=== PATIENT | male | born 1960 | race Caucasian/White ===

== ENCOUNTER 2024-04-12 10:56 | Outpatient (AMB) | payer OTHER, SELFPAY ==
--- NOTE | 2024-04-12 11:12 | MHC.PC.OV ---
Vital Signs 04/12/24 11:15 04/12/24 11:53 Height 5 ft 10 in Weight 260 lb BMI 37.3 BP 164/84 H 160/110 H Blood Pressure Location Lt brachial Rt brachial Position Sitting Sitting Respiration 15 Pulse 69 Pulse Source Pulse Oximeter Temp 98.1 F Temp Source Oral Pulse Oximetry (%) 94 Oxygen Delivery Method Room Air Intake Visit Reasons: EstablishCareNP Intake Note: new patient to establish care Allergies cat dander [CATS] Adverse Reaction (Mild, Verified 04/12/24 11:46) RUNNY NOSE Shellfish Allergy (Mild, Uncoded 04/12/24 11:46) HIVES, SWELLING GRASS Adverse Reaction (Mild, Uncoded 04/12/24 11:46) RUNNY NOSE Medication List - Last Reconciled 04/12/24 by Asif Franco CNP No Known Home Meds Tobacco use date assessed: 04/12/24 Dental Screening Dental Screen Date: 04/12/24 Did you have a dental visit in the last 12 months?: Yes Did you have a dental problem in the last 6 months where you did not have access to dental care?: No Was dental information given to patient?: Patient has dentist HPI HPI Comments History of Present Illness Details New patient Prior PCP:?Dr Espinosa in [place] Last office visit/CPE: About 10 years Acute issue(s): Sleep apnea on CPAP -His last sleep study was several years ago. He notes that his cpap machine is over 10 years old and currently displaying a message that it needs to be renewed He denies anxiety or depressive symptoms. He is a and believes he has PTSD. He was evaluated by [facility] from [facility] [place] about a year ago and was informed he does not have PTSD. He has never been on psychotropic medications. He declines pharmacotherapy or psychotherapy at this time He is not on prescription medications He has been on a keto diet and has lost 40 lb since September. No formal exercise. He notes poor sleep and states that he wakes up every hour at night He denies acute symptoms at this time PMHx: Shingles, headache, arthritis, sinusitis, diverticulitis, sleep apnea on cpap, PTSD SurgHx: None FHx: Mom: Clotting disorder, HLD, HTN. Dad: Asthma, clotting disorder. PGF: Cancer (unspecified), CHERYLE. MGM: Cardiovascular disease. MFG: Clotting disorder SocHx: Former smokers with 15 yrs pack history, smoked for 30 years and quit about 12 years ago. Drinks 4 or more glasses of vodka nightly x 4 days weekly. Consumes edible cannabis as sleep aid occasionally Last eye exam was in 2022 with [facility]. He has an eye appointment in May 2024 Last colonoscopy was over 10 years ago: no polyps or tumor He has not been vaccinated for shingles or pneumonia. He also has not been vaccinated for covid or influenza. He notes that I'm anti-vaccine. Last tetanus vaccine was probably 7-8 years ago [facility] Medical History (Updated 04/12/24 @ 16:14 by Asif Franco CNP) Shingles Headache Arthritis Sinusitis Diverticulitis Surgical History (Updated 04/12/24 @ 11:25 by Darshana Olguin MA) History of colonoscopy Family History (Updated 04/12/24 @ 11:27 by Darshana Olguin MA) Paternal Grandfather Substance abuse Cancer Father Asthma Clotting disorder Mother Hypertension High cholesterol Clotting disorder Maternal Grandmother Cardiovascular disease Maternal Grandfather Clotting disorder Social History (Updated 04/12/24 @ 11:21 by Darshana Olguin MA) Household Members: Spouse Both parents involved: No Caregiver staying overnight: No Housing: House Are you a primary director of home care hospice to a significant other at home: Yes Do you presently have visiting nurse or other home services: No 75 years or older and lives alone: No Alcohol intake: current Alcohol intake frequency: a few times a week Patient Tobacco Use Status: Former Tobacco user Years Smoked: 30 e-Cigarette/Vaping Use: Never Used Second Hand Smoke Exposure: No service: No Current occupational status: retired Cognitive needs: No Hearing needs: No Vision needs: Yes (wear glasses) Questionnaire PHQ-9 Over the last 2 weeks, how often have you been bothered by any of the following problems? 1. Little interest or pleasure in doing things: not at all 2. Feeling down, depressed, or hopeless: several days 3. Trouble falling or staying asleep, or sleeping too much: nearly every day 4. Feeling tired or having little energy: more than half the days 5. Poor appetite or overeating: more than half the days 6. Feeling bad about yourself - or that you are a failure or have let yourself or your family down: several days 7. Trouble concentrating on things, such as reading the newspaper or watching television: more than half the days 8. Moving or speaking so slowly that other people could have noticed. Or the opposite - being so fidgety or restless that you have been moving around a lot more than usual: not at all 9. Thoughts that you would be better off or of hurting yourself in some way: not at all Total score: 11 Depression Screening Interpretation: Positive Depression Screening Follow-up: Declines treatment Depression Screening Done: Yes 79479 - PHQ-9 Billing: Yes Source: Developed by Drs. Kervin Morales, Prema Alvarado, Dom Perez and colleagues, with an educational maddy from [employer]. Thrive Questionnaire Date Thrive assessed: 04/12/24 I am a: Patient What is your living situation today?: I have a steady place to live Within the past 12 months, did the food you bought not last and you didn't have the money to get more?: Never true Within the past 12 months, did you worry whether your food would run out before you got money to buy more?: Never true Do you have trouble paying for medicines?: No Do you have trouble getting transportation to medical appointments?: No Do you have trouble paying your heating and electricity bill?: No Do you have trouble taking care of your child, family member or friend?: No Do you have trouble with day-to-day activities such as bathing, preparing meals, shopping, managing finances, etc.?: No Are you currently unemployed and looking for a job?: No Are you interested in more education?: No THRIVE Score: 0 AUDIT C Alcohol Use Questionnaire (AUDIT-C) 1. How often do you have a drink containing alcohol?: 4 or more times a week 2. How many drinks containing alcohol do you have on a typical day when you are drinking?: 5 or 6 3. How often do you have six or more drinks on one occasion?: Monthly Total Score: 8 Score Reviewed/Action Taken: Yes DARLENE-7 AMB Questionnaire DARLENE-7 Date DARLENE - 7 assessed: 04/12/24 Feeling nervous, anxious, or on edge: 1 = Several days Not being able to stop or control worryin = Several days Worrying too much about different things: 1 = Several days Trouble relaxin = Several days Being so restless that it is hard to sit still: 1 = Several days Becoming easily annoyed or irritable: 1 = Several days Feeling afraid as if something awful might happen: 0 = Not at all Total DARLENE-7 score (0-4 normal; 5-9 mild; 10-14 moderate; 15-21 severe): 6 Source: Developed by Drs. Kervin Morales, Prema Alvarado, Dom Perez and colleagues, with an educational maddy from [employer]. DARLENE-7 Assessment Billing DARLENE-7 Assessment Tool: DARLENE-7 Assessment [id number] Review of Systems Const Details: Denies chills, Denies fatigue, Denies fever(s), Denies headache(s) and Denies weakness HEENT Denies change in vision, Denies dizziness, Denies headache(s), Denies hearing loss, Denies nasal congestion, Denies sinus pain, Denies sinus pressure and Denies sore throat Card Denies chest pain, Denies lightheadedness, Denies dyspnea and Denies other (palpitations) Resp Denies cough, Denies dyspnea and Denies wheezing GI Denies abdominal pain, Denies melena, Denies hematochezia, Denies change in bowel habits, Denies dyspepsia and Denies nausea Denies hematuria and Denies dysuria Musc Denies abnormal gait, Denies myalgias, Denies arthralgias, Denies numbness and Denies tingling Skin/Breast Denies rash, Denies unusual bruising and Denies wounds Neuro Denies abnormal gait, Denies dizziness, Denies headache(s), Denies memory loss, Denies numbness, Denies Sensory deficit (Neuro), Denies tingling and Denies weakness Psych Denies anxiety, Denies depression and Denies memory loss Endo Denies cold intolerance, Denies fatigue, Denies heat intolerance, Denies polydipsia and Denies polyuria Guy/Lymph Denies easy bleeding and Denies easy bruising Aller/Immun Denies wheezing Physical exam (Primary Care) Vital Signs: Last Vital Signs Temp 98.1 F 04/12/24 11:15 Pulse 69 04/12/24 11:15 Resp 15 04/12/24 11:15 BP 160/110 H 04/12/24 11:53 Pulse Ox 94 04/12/24 11:15 Oxygen Delivery Method Room Air 04/12/24 11:15 BMI result Body Mass Index 37.3 Tobacco/Smoking Status: Tobacco use Status Tobacco use date assessed 04/12/24 04/12/24 11:23 Patient Tobacco Use Status Former Tobacco user 04/12/24 11:23 e-Cigarette/Vaping Use Never Used 04/12/24 11:23 PHQ-9: PHQ-9 Score PHQ-9: Total score 11 04/12/24 16:17 Depression Screening Interpretation: Positive Depression Screening Follow-up: Declines treatment Thrive Assessment: Date of Thrive Assessment Date Thrive assessed 04/12/24 04/12/24 11:14 Const Other: General: no acute distress, well developed, alert and awake Nutritional Appearance: well nourished Orientation/consciousness: patient oriented x3 HENMT Head: Yes normocephalic and Yes atraumatic Ears: hearing grossly normal bilaterally and TM's normal bilaterally General nose exam: Normal external nose present and Normal nares present Mouth: Normal oral and palatal mucosa present and moist mucous membranes Teeth and gingiva: dentition normal Throat: Yes oropharynx normal Eyes Pupils: Equal, round and reactive pupils present and Pupil accommodation reflex normal EOM: EOMs intact bilaterally Neck Neck: Yes normal visual inspection, Yes no lymphadenopathy and Yes trachea midline Thyroid: Thyroid normal Carotids: no bruits Lymphatic: no lymphadenopathy noted Chest Chest palpation & inspection: normal inspection of the chest Resp Effort & Inspection: normal respiratory effort Auscultation: clear to auscultation bilaterally Cardio Rate: regular rate Rhythm: regular rhythm Heart sounds: S1 normal heart sound present, S2 normal heart sound present, no gallops, no murmurs and no rubs Bruits: no abdominal aortic bruits and no carotid bruits GI Palpation (GI): No Abdominal aortic bruit present, Soft to palpation, nontender, No hepatosplenomegaly present and No Rebound tenderness present Auscultation: normal bowel sounds General: Yes no CVA tenderness Back/Spine/Pelvis Back: no CVA tenderness Cervical Spine: cervical ROM normal and No Cervical spine tenderness Thoracic/Lumbar Spine: thoraco-lumbar ROM normal, No pain with thoraco-lumbar ROM, No thoracic spinal tenderness and No lumbar spinal tenderness Skin General: warm and dry. Normal skin color. Normal skin turgor Lesions: no lesions Rashes: no rashes Trauma: no lacerations or abrasions Wounds: no wounds Nails: normal Neuro General: patient oriented x3, gait normal and CN's II-XI intact bilaterally Cranial nerves: Yes Equal, round and reactive pupils present Cognition (Neuro): normal cognition Gait exam (Neuro): Normal gait present Motor exam (neuro): 5/5 motor strength present throughout Sensory Exam: No Sensory deficit (Neuro) Deep tendon reflexes (DTR's): Right patellar reflex intensity grade: 2+ and Left patellar reflex intensity grade: 2+ Extrem General: Yes normal to inspection, No edema and No calf tenderness Psych Appearance: grossly normal Affect: normal affect Attitude: cooperative Thought process: Normal thought process present Coding Level of Care Code New Pt Level 4 (90714) New Pt Prev Care 40-64y(50515) Diagnoses Normal physical examination, routine Z00.00 Hypertension I10 Sleep disturbance G47.9 Sleep apnea G47.30 Anxiety and depression F41.9; F32.A Obesity (BMI 30-39.9) E66.9 Vaccine counseling Z71.85 Colon cancer screening Z12.11 Laboratory tests ordered as part of a complete physical exam (CPE) Z00.00 Additional Codes DARLENE-7 Assessment Billing - DARLENE-7 Assessment Tool: DARLENE-7 Assessment 24173 ([id number]) Assessment & Plan Assessment & Plan (1) Normal physical examination, routine: Code(s): Z00.00 - Encounter for general adult medical examination without abnormal findings Category: Medical Plan: No significant functional limitation noted Healthy diet and routine exercise encouraged Advised to limit his alcohol intake to no more than 7 drinks per week. He notes that his drinking is not excessive and declines referral to [facility] to help with his drinking Advised to get lab work and a follow-up with PCP in 2 weeks for hypertension and labs review. Return sooner with symptoms or concerns. Verbalized understanding and agreed with the treatment plan (2) Hypertension: Code(s): I10 - Essential (primary) hypertension Category: Medical Plan: His resting blood pressure is 160/110, above goal of less than 140/90. He denies history of hypertension. However, he notes that was admitted at [facility] in 2021 for non hypertension related issues; however, his systolic blood pressure was over 200 and diastolic blood pressure was over 100. He notes that his elevated BP was correlated to work related stressors. He was not treated with antihypertensive. Will start lisinopril 20 mg daily. Advised to take as prescribed Low-sodium diet encouraged Follow-up in 1 month Verbalized understanding and agreed with treatment plan (3) Sleep disturbance: Code(s): G47.9 - Sleep disorder, unspecified Category: Medical Plan: Reports poor sleep and wakes up every hour at night Likely due to sleep apnea. May also be related to anxiety or depressive symptoms; although poor sleep may cause anxiety or depressive symptoms Referred to sleep medicine Routine exercise encouraged Follow-up with PCP with worsening or new symptoms Verbalized understanding and agreed with the treatment plan (4) Sleep apnea: Code(s): G47.30 - Sleep apnea, unspecified Category: Medical Plan: His last sleep study was several years ago. He notes that his cpap machine is over 10 years old and currently displaying a message that it needs to be renewed Referred to [facility] sleep medicine (5) Anxiety and depression: Code(s): F41.9 - Anxiety disorder, unspecified; F32.A - Depression, unspecified Category: Medical Plan: Denies anxiety or depressive symptoms. He is a and believes he has PTSD. He was evaluated by [facility] from [facility] [place] about a year ago and was informed he does not have PTSD. He has never been on psychotropic medications. He declines pharmacotherapy or psychotherapy at this time. PHQ-9 and DARLENE-7 scores revealed moderate depression mild anxiety respectively. Routine exercise encouraged. Advised to inform his PCP with worsening or new symptoms or if he needs pharmacotherapy or psychotherapy for anxiety or depression. Verbalized understanding and agreed with the plan (6) Obesity (BMI 30-39.9): Code(s): E66.9 - Obesity, unspecified Category: Medical Plan: He currently weighs 260 lb, BMI is 37.3. He has been on a keto diet and has lost 40 lb since September. No formal exercise. Declines referral to a dietitian or weight management and notes that he will continue with his keto diet. He also plans on starting formal exercise soon. Healthy diet and routine exercise encouraged. Follow-up with PCP as needed. Verbalized understanding and agreed with the plan (7) Vaccine counseling: Code(s): Z71.85 - Encounter for immunization safety counseling Category: Medical Plan: He has not been vaccinated for shingles, pneumonia, flu, or COVID. He does not believe in vaccination Instructed on importance of vaccination and encouraged to get vaccinated for shingles, pneumonia, and flu. He may request the vaccines from his local pharmacy (8) Colon cancer screening: Code(s): Z12.11 - Encounter for screening for malignant neoplasm of colon Category: Medical Plan: Last colonoscopy was over 10 years ago: no polyps or tumor Referred to [facility] gastro[facility]ology for a colonoscopy (9) Laboratory tests ordered as part of a complete physical exam (CPE): Code(s): Z00.00 - Encounter for general adult medical examination without abnormal findings Category: Medical Plan: Fasting labs ordered as part of a complete physical exam. Advised to fast for at least 10 hours before getting labs drawn. May drink water Verbalized understanding and agreed with treatment plan. Orders: Orders [facility] Panel Fast 04/12/24 Z00.00 - Encounter for general adult medical examination without abnormal findings Microalbumin, Random (w Creat) 04/12/24 Z00.00 - Encounter for general adult medical examination without abnormal findings PSA, Ultra Sensitive 04/12/24 Z00.00 - Encounter for general adult medical examination without abnormal findings TSH reflex Free T4 04/12/24 Z00.00 - Encounter for general adult medical examination without abnormal findings Lipid Panel 04/12/24 Z00.00 - Encounter for general adult medical examination without abnormal findings UA CC w/rflx Micro + Cult 04/12/24 Z00.00 - Encounter for general adult medical examination without abnormal findings Complete Blood Count Auto Diff 04/12/24 Z00.00 - Encounter for general adult medical examination without abnormal findings Referrals Sleep Medicine Referral G47.9 - Sleep disorder, unspecified Gastroenterology Referral Z12.11 - Encounter for screening for malignant neoplasm of colon Medications: New lisinopril 20 mg PO DAILY 30 days 30 tabs 3RF
[2024-04-12 11:15] VITALS: BP 164/84; PULSE 69; RESP 15; TEMP 36.7; O2SAT 94; BMI 37.3
[2024-04-12 11:53] VITALS: BP 160/110
== END 2024-04-12 12:23 | disposition home or self-care (01) ==
LOC: HO.HMCFM 10:57
PROVIDERS: PCP Obstetrics & Gynecology; Visit Provider Nurse Practitioner Family
DX: Z00.00 Encounter for general adult medical examination without abnormal findings (principal); I10 Essential (primary) hypertension; G47.9 Sleep disorder, unspecified; G47.30 Sleep apnea, unspecified; F41.9 Anxiety disorder, unspecified; F32.A Depression, unspecified; E66.9 Obesity, unspecified; Z71.85 Encounter for immunization safety counseling; Z12.11 Encounter for screening for malignant neoplasm of colon

== ENCOUNTER → 2024-04-12 10:56 | Outpatient (BNVA) | payer OTHER, SELFPAY | PROVIDERS: Visit Provider Nurse Practitioner Family | DX: Z00.00 Encounter for general adult medical examination without abnormal findings (principal); I10 Essential (primary) hypertension; G47.30 Sleep apnea, unspecified; F41.9 Anxiety disorder, unspecified; F32.A Depression, unspecified; E66.9 Obesity, unspecified; Z68.37 Body mass index [BMI] 37.0-37.9, adult; Z71.85 Encounter for immunization safety counseling | CPT/HCPCS: 96127 ==

== ENCOUNTER 2024-04-19 09:49 | Outpatient (REF) | payer OTHER, SELFPAY ==
[2024-04-19 11:13] LABS: MANUAL DIFF FLAG NO
[2024-04-19 11:22] LABS: Basophils Percent Auto 0.4 % (0-2); Eosinophils Absolute Auto 0.2 X10*3/uL (0.0-0.4); Eosinophils Percent Auto 2.4 % (0-4); Hematocrit 45.5 % (42.0-52.0); Hemoglobin 15.3 g/dl (14.0-18.0); Imm Gran Abs Auto 0.02 X10*3/uL (0.00-0.03); Imm Gran Pct Auto 0.3 % (0.0-0.4); Lymphocytes Absolute Auto 1.3 X10*3/uL (1.2-4.9); Lymphocytes Percent Auto 19.8 % (20-40); Mean Corpuscular HGB Conc 33.6 g/dl (31.0-36.0); Mean Corpuscular Hemoglobin 29.7 pg (27.0-33.0); Mean Corpuscular Volume 88.2 fL (80.0-98.0); Mean Platelet Volume 9.7 fL (9.4-12.4); Monocytes Absolute Auto 0.6 X10*3/uL (0.1-1.2); Neutrophils Absolute Auto 4.6 x10*3/uL (2.0-8.3); Neutrophils Percent Auto 68.1 % (45-73); Platelet Count 302 X10*3/uL (160-400); Red Blood Count 5.16 X10*6/uL (4.60-5.80); Red Cell Distribution Width 12.6 % (11.0-16.0); White Blood Count 6.8 X10*3/uL (4.8-10.8)
[2024-04-19 12:18] LABS: Alanine Aminotransferase 23 U/L (0-40); Albumin Level 4.4 g/dL (3.5-5.0); Alkaline Phosphatase 81 U/L (39-117); Anion Gap 15 (12-20); Aspartate Amino Transferase 23 U/L (5-37); Bilirubin Total 0.5 mg/dL (0.0-1.0); Blood Urea Nitrogen 13 mg/dL (9-16); Calcium 10.6 mg/dL (8.4-10.2); Carbon Dioxide 27 mmol/L (22-29); Chloride 104 mmol/L (96-108); Cholesterol 171 mg/dL (<200); Estimated Glomerular Filt Rate > 60; Glucose Fasting 106 mg/dL (60-99); HDL Cholesterol 48 mg/dL (>40); LDL Cholesterol Calculated 107 mg/dL (<100); Potassium 3.9 mmol/L (3.3-5.1); Sodium 142 mmol/L (135-145); Total Protein 7.2 g/dL (6.5-8.0); Triglycerides 82 mg/dL (<150)
[2024-04-19 12:35] LABS: TSH reflex Free T4 1.95 uIU/mL (0.32-4.0)
[2024-04-19 14:18] LABS: Appearance Urine Cloudy; Color Urine Dark Yellow; Glucose Urine UA Negative (Negative); Leukocyte Esterase Urine Moderate (2+) (Negative); Nitrite Urine Negative (Negative); UMIC TRIGGER UACC YES; Urine Blood Negative (Negative); Urine Ketones Trace mg/dL (Negative); Urine Protein Trace mg/dL (Neg-Trace)
[2024-04-19 14:26] LABS: Bacteria Urine None Seen (None Seen); Calcium Oxalate Crystals Urine Present; RBC Urine 0-2 /HPF (0-2); Squamous Epithelial Cell Urine 0-2 /HPF (0-2); UACC Culture Trigger YES; WBC Urine 21-50 /HPF (0-5)
[2024-04-19 15:37] LABS: Creatinine Urine 337.68 mg/dL; Microalbum/Creatinine Ratio Ur 19.5 ug/mg cr (<30)
[2024-04-26 21:33] LABS: PSA, Ultra Sensitive 1.54 ng/mL
== END 2024-04-19 09:50 | disposition home or self-care (01) ==
LOC: HO.WFDLDS 09:49
PROVIDERS: Visit Provider Nurse Practitioner Family
DX: Z00.00 Encounter for general adult medical examination without abnormal findings (principal); Z12.5 Encounter for screening for malignant neoplasm of prostate; R82.90 Unspecified abnormal findings in urine
CPT/HCPCS: 36415; 80053; 80061; 81001; 82043; 82570; 84153; 84443; 85025; 87086

== ENCOUNTER 2024-04-26 09:46 | Outpatient (AMB) | payer OTHER, SELFPAY ==
--- NOTE | 2024-04-26 09:50 | MHC.PC.OV ---
Vital Signs 04/26/24 09:52 Height 5 ft 10 in Weight 262 lb BMI 37.6 BP 164/90 H Blood Pressure Location Lt brachial Position Sitting Respiration 16 Pulse 59 Pulse Source Pulse Oximeter Temp 98.6 F Temp Source Oral Pulse Oximetry (%) 96 Oxygen Delivery Method Room Air Intake Visit Reasons: 2 wks PCP HTN, labs review Intake Note: patient here to follow up on HTN and lab review Smash Hand Required: No Allergies cat dander [CATS] Adverse Reaction (Mild, Verified 04/26/24 10:00) RUNNY NOSE Shellfish Allergy (Mild, Uncoded 04/26/24 10:00) HIVES, SWELLING GRASS Adverse Reaction (Mild, Uncoded 04/26/24 10:00) RUNNY NOSE Medication List - Last Reconciled 04/26/24 by Asif Franco CNP lisinopril 20 mg PO DAILY 30 days Tobacco use date assessed: 04/26/24 Dental Screening Dental Screen Date: 04/26/24 Did you have a dental visit in the last 12 months?: Yes Did you have a dental problem in the last 6 months where you did not have access to dental care?: No Was dental information given to patient?: Patient has dentist HPI HPI Comments History of Present Illness Details 63-year-old male presents for hypertension and review of recent lab results follow-up He admits to taking his medications as prescribed without adverse reactions He offers no complaints and denies acute symptoms at this time [facility] Medical History (Updated 04/26/24 @ 10:05 by Asif Franco CNP) Shingles Headache Arthritis Sinusitis Diverticulitis Surgical History (Updated 04/12/24 @ 11:25 by Darshana Olguin MA) History of colonoscopy Family History (Updated 04/12/24 @ 11:27 by Darshana Olguin MA) Paternal Grandfather Substance abuse Cancer Father Asthma Clotting disorder Mother Hypertension High cholesterol Clotting disorder Maternal Grandmother Cardiovascular disease Maternal Grandfather Clotting disorder Social History (Updated 04/12/24 @ 11:21 by Darshana Olguin MA) Household Members: Spouse Both parents involved: No Caregiver staying overnight: No Housing: House Are you a primary rn transitional care to a significant other at home: Yes Do you presently have visiting nurse or other home services: No 75 years or older and lives alone: No Alcohol intake: current Alcohol intake frequency: a few times a week Patient Tobacco Use Status: Former Tobacco user Years Smoked: 30 e-Cigarette/Vaping Use: Never Used Second Hand Smoke Exposure: No service: No Current occupational status: retired Cognitive needs: No Hearing needs: No Vision needs: Yes (wear glasses) Questionnaire Thrive Questionnaire Date Thrive assessed: 04/07/24 I am a: Patient What is your living situation today?: I have a steady place to live THRIVE Score: 0 DARLENE-7 AMB Questionnaire DARLENE-7 Date DARLENE - 7 assessed: 04/12/24 Source: Developed by Drs. Kervin Morales, Prema Alvarado, Dom Perez and colleagues, with an educational maddy from [employer]. Review of Systems Const Details: Const Denies chills, Denies fatigue, Denies fever(s), Denies headache(s) and Denies weakness ENT Denies dizziness and Denies headache(s) Card Denies chest pain, Denies lightheadedness, Denies dyspnea and Denies other (Palpitations) Resp Denies cough, Denies dyspnea, Denies wheezing and Denies other ( shortness of breath) GI Denies abdominal pain, Denies melena, Denies hematochezia, Denies change in bowel habits, Denies dyspepsia and Denies nausea Denies hematuria and Denies dysuria Musc Denies abnormal gait, Denies myalgias, Denies arthralgias, Denies numbness and Denies tingling Skin/Breast Denies rash, Denies unusual bruising and Denies wounds Neuro Denies abnormal gait, Denies dizziness, Denies headache(s), Denies memory loss, Denies numbness, Denies Sensory deficit (Neuro), Denies tingling and Denies weakness Psych Denies anxiety, Denies depression, Denies memory loss Endo Denies cold intolerance, Denies fatigue, Denies heat intolerance, Denies polydipsia and Denies polyuria Aller/Immun Denies wheezing Physical exam (Primary Care) Vital Signs: Last Vital Signs Temp 98.6 F 04/26/24 09:52 Pulse 59 04/26/24 09:52 Resp 16 04/26/24 09:52 BP 164/90 H 04/26/24 09:52 Pulse Ox 96 04/26/24 09:52 Oxygen Delivery Method Room Air 04/26/24 09:52 BMI result Body Mass Index 37.6 Tobacco/Smoking Status: Tobacco use Status Tobacco use date assessed 04/26/24 04/26/24 09:57 Patient Tobacco Use Status Former Tobacco user 04/26/24 09:57 e-Cigarette/Vaping Use Never Used 04/26/24 09:57 Thrive Assessment: Date of Thrive Assessment Date Thrive assessed 04/07/24 04/26/24 09:57 Const Other: General: no acute distress and well developed Nutritional Appearance: well nourished Orientation/consciousness: patient oriented x3 HENMT Head: Yes normocephalic and Yes atraumatic Eyes General: appearance normal, both eyes and all related structures Pupils: Equal, round and reactive pupils present EOM: EOMs intact bilaterally Resp Effort & Inspection: normal respiratory effort Auscultation: clear to auscultation bilaterally Cardio Rate: regular rate Rhythm: regular rhythm Heart sounds: S1 normal heart sound present, S2 normal heart sound present, no gallops, no murmurs and no rubs GI Palpation (GI): No Abdominal aortic bruit present, Soft to palpation, nontender, No hepatosplenomegaly present and No Rebound tenderness present Auscultation: normal bowel sounds General: Yes no CVA tenderness Back/Spine/Pelvis Back: no CVA tenderness Extrem General: Yes normal to inspection, No edema and No calf tenderness Skin General: warm and dry. Normal skin color. Normal skin turgor Neuro General: patient oriented x3, gait normal and no focal neuro deficit Cranial nerves: Yes Equal, round and reactive pupils present Cognition (Neuro): normal cognition Gait exam (Neuro): Normal gait present Sensory Exam: No Sensory deficit (Neuro) Psych Appearance: grossly normal Affect: normal affect Attitude: cooperative Thought process: Normal thought process present Coding Level of Care Code Est Pt Level 4 (28123) Diagnoses Hypertension I10 Elevated fasting glucose R73.01 Hypercalcemia E83.52 Assessment & Plan Assessment & Plan (1) Hypertension: Code(s): I10 - Essential (primary) hypertension Category: Medical Plan: Fasting blood pressure is 164/90, above goal of less than 140/90 Will increase lisinopril to 40 mg daily. Advised to take as prescribed Low-sodium diet encouraged Follow-up in 2 weeks or sooner with symptoms such as persistent headache, dizziness, or blurry vision Verbalized understanding and agreed with the plan (2) Elevated fasting glucose: Code(s): R73.01 - Impaired fasting glucose Category: Medical Plan: Recent lab results reviewed with the patient Fasting glucose is slightly elevated, 106 Will repeat fasting glucose and make changes as needed Healthy diet and routine exercise encouraged Advised to fast for 10-12 hours, may drink water, and get blood work done a few days before his next visit Follow-up in 2 weeks Verbalized understanding and agreed with the treatment plan (3) Hypercalcemia: Code(s): E83.52 - Hypercalcemia Category: Medical Plan: Recent calcium level was slightly elevated, 10.6 Will repeat calcium level to monitor trend. Will make changes as needed Verbalized understanding and agreed with the treatment plan Orders: Orders Glucose Fasting Today R73.01 - Impaired fasting glucose Calcium Today E83.52 - Hypercalcemia Medications: New lisinopril 40 mg PO DAILY 30 days 30 tabs 3RF Discontinued lisinopril Discontinued Reason: Doctor's Order 20 mg PO DAILY 30 days 30 tabs 3RF
[2024-04-26 09:52] VITALS: BP 164/90; PULSE 59; RESP 16; TEMP 37; O2SAT 96; BMI 37.6
== END 2024-04-26 10:16 | disposition home or self-care (01) ==
PROVIDERS: Visit Provider Nurse Practitioner Family
DX: I10 Essential (primary) hypertension (principal); R73.01 Impaired fasting glucose; E83.52 Hypercalcemia

== ENCOUNTER → 2024-04-26 09:46 | Outpatient (BNVA) | payer OTHER, SELFPAY | PROVIDERS: Visit Provider Nurse Practitioner Family ==

== ENCOUNTER 2024-05-04 11:29 | Outpatient (REF) | payer OTHER, SELFPAY ==
[2024-05-04 14:21] LABS: Calcium 9.8 mg/dL (8.4-10.2); Glucose Fasting 109 mg/dL (60-99)
[2024-05-04 18:06] LABS: Appearance Urine Clear; Color Urine Yellow; Glucose Urine UA Negative (Negative); Leukocyte Esterase Urine Trace (Negative); Nitrite Urine Negative (Negative); PH 6.5 (5.0-9.0); UMIC TRIGGER UACC YES; Urine Blood Negative (Negative); Urine Ketones Negative (Negative); Urine Protein Negative (Neg-Trace)
[2024-05-04 18:12] LABS: Bacteria Urine None Seen (None Seen); Hyaline Casts Urine 0-2 /LPF (0-2); RBC Urine 0-2 /HPF (0-2); Squamous Epithelial Cell Urine 0-2 /HPF (0-2); UACC Culture Trigger YES
== END 2024-05-04 11:30 | disposition home or self-care (01) ==
LOC: HO.WFDLDS 11:29
PROVIDERS: Visit Provider Nurse Practitioner Family
DX: R73.01 Impaired fasting glucose (principal); E83.52 Hypercalcemia; R82.90 Unspecified abnormal findings in urine
CPT/HCPCS: 36415; 81001; 82310; 82947; 87086

== ENCOUNTER 2024-05-10 10:34 | Outpatient (AMB) | payer OTHER, SELFPAY ==
--- NOTE | 2024-05-10 10:44 | A.OFFPC_ITS ---
Vital Signs 05/10/24 10:48 05/10/24 11:11 Height 5 ft 10 in Weight 266 lb 6 oz BMI 38.2 BP 200/93 H 190/120 H Blood Pressure Location Rt brachial Rt brachial Position Sitting Sitting Respiration 16 18 Pulse 58 64 Pulse Source Pulse Oximeter Auscultation Temp 98.2 F Temp Source Oral Pulse Oximetry (%) 98 Oxygen Delivery Method Room Air Intake Visit Reasons: 2 wks HTN, labs Intake Note: patient here for follow up on HTN and labs [employer] Mixing [employer] Driver Required: No Allergies cat dander [CATS] Adverse Reaction (Mild, Verified 05/10/24 11:05) RUNNY NOSE Shellfish Allergy (Mild, Uncoded 05/10/24 11:05) HIVES, SWELLING GRASS Adverse Reaction (Mild, Uncoded 05/10/24 11:05) RUNNY NOSE Medication List - Last Reconciled 05/10/24 by Asif Franco CNP lisinopril 40 mg PO DAILY 30 days Tobacco use date assessed: 05/10/24 Dental Screening Dental Screen Date: 05/10/24 Did you have a dental visit in the last 12 months?: Yes Did you have a dental problem in the last 6 months where you did not have access to dental care?: No Was dental information given to patient?: Patient has dentist HPI HPI Comments History of Present Illness Details The patient is a 63-year-old male presenting with persistent hypertension. He reports inadequate control of his blood pressure despite adherence to his prescribed medication, Lisinopril 40 mg daily. The patient mentions this inconsistency is due to his irregular dosing schedule, which varies depending on daily activities. Last recorded systolic pressure was substantially elevated at 200/93 mmHg, prior to administration of medication on the day of the visit. Resting blood pressure measured at 190/120 mmHg; heart rate noted to be 64 beats per minute. The patient denies symptoms such as headache, chest pain, or visual changes. He acknowledges high alcohol intake, involving consumption of 10 alcoholic beverages on Fridays and 8 on Saturdays, in addition to lesser amounts on other days. Patient adheres to reduced salt intake since advised two weeks ago. Past medical tests indicated fasting blood glucose levels of 106 mg/dL and 109 mg/dL, suggesting a trend towards elevated glucose levels. The patient's A1C level was noted to be 5.5%, indicating no current diabetes diagnosis. He has no personal history of diabetic symptoms or other related complications. Social History - Alcohol consumption: Approximately 10 drinks on Fridays, 8 on Saturdays, and varied intake on Tuesdays and . - Sports and Recreation: Plays golf and pool on social occasions involving alcohol consumption. - Salt consumption: Actively reducing in take following last clinical advice. Results - Labs: Fasting blood glucose previously 106 mg/dL, now 109 mg/dL. - Tests and Diagnostics: A1C level measu red at 5.5%, indicating no diabetes. [facility] Medical History (Updated 05/10/24 @ 11:50 by Asif Franco CNP) Shingles Headache Arthritis Sinusitis Diverticulitis Surgical History (Updated 04/12/24 @ 11:25 by Darshana Olguin MA) History of colonoscopy Family History (Updated 04/12/24 @ 11:27 by Darshana Olguin MA) Paternal Grandfather Substance abuse Cancer Father Asthma Clotting disorder Mother Hypertension High cholesterol Clotting disorder Maternal Grandmother Cardiovascular disease Maternal Grandfather Clotting disorder Social History (Updated 04/12/24 @ 11:21 by Darshana Olguin MA) Household Members: Spouse Both parents involved: No Caregiver staying overnight: No Housing: House Are you a primary pharmacist critical care to a significant other at home: Yes Do you presently have visiting nurse or other home services: No 75 years or older and lives alone: No Alcohol intake: current Alcohol intake frequency: a few times a week Patient Tobacco Use Status: Former Tobacco user Years Smoked: 30 e-Cigarette/Vaping Use: Never Used Second Hand Smoke Exposure: No service: No Current occupational status: retired Cognitive needs: No Hearing needs: No Vision needs: Yes (wear glasses) Questionnaire PHQ-9 Over the last 2 weeks, how often have you been bothered by any of the following problems? 1. Little interest or pleasure in doing things: several days 2. Feeling down, depressed, or hopeless: several days 3. Trouble falling or staying asleep, or sleeping too much: more than half the days 4. Feeling tired or having little energy: several days 5. Poor appetite or overeating: several days 6. Feeling bad about yourself - or that you are a failure or have let yourself or your family down: not at all 7. Trouble concentrating on things, such as reading the newspaper or watching television: several days 8. Moving or speaking so slowly that other people could have noticed. Or the opposite - being so fidgety or restless that you have been moving around a lot more than usual: not at all 9. Thoughts that you would be better off or of hurting yourself in some way: not at all Total score: 7 Depression Screening Interpretation: Positive Depression Screening Done: Yes 70552 - PHQ-9 Billing: Yes Source: Developed by Drs. Kervin Morales, Prema Alvaraod, Dom Perez and colleagues, with an educational maddy from [employer]. Thrive Questionnaire Date Thrive assessed: 05/10/24 I am a: Patient What is your living situation today?: I have a steady place to live Within the past 12 months, did the food you bought not last and you didn't have the money to get more?: Never true Within the past 12 months, did you worry whether your food would run out before you got money to buy more?: Never true Do you have trouble paying for medicines?: No Do you have trouble getting transportation to medical appointments?: No Do you have trouble paying your heating and electricity bill?: No Do you have trouble taking care of your child, family member or friend?: No Do you have trouble with day-to-day activities such as bathing, preparing meals, shopping, managing finances, etc.?: No Are you currently unemployed and looking for a job?: No Are you interested in more education?: No Please select the resources that you would like help with: None Currently or been in a relationship where the following occur: No concerns reported THRIVE Score: 0 AUDIT C Alcohol Use Questionnaire (AUDIT-C) 1. How often do you have a drink containing alcohol?: 4 or more times a week 2. How many drinks containing alcohol do you have on a typical day when you are drinking?: 5 or 6 3. How often do you have six or more drinks on one occasion?: Weekly Total Score: 9 Score Reviewed/Action Taken: Yes DARLENE-7 AMB Questionnaire DARLENE-7 Date DARLENE - 7 assessed: 05/10/24 Feeling nervous, anxious, or on edge: 1 = Several days Not being able to stop or control worryin = Several days Worrying too much about different things: 1 = Several days Trouble relaxin = Several days Being so restless that it is hard to sit still: 1 = Several days Becoming easily annoyed or irritable: 1 = Several days Feeling afraid as if something awful might happen: 1 = Several days Total DARLENE-7 score (0-4 normal; 5-9 mild; 10-14 moderate; 15-21 severe): 7 Source: Developed by Drs. Kervin Morales, Prema Alvarado, Dom Perez and colleagues, with an educational maddy from [employer]. DARLENE-7 Assessment Billing DARLENE-7 Assessment Tool: DARLENE-7 Assessment 21930 Review of Systems Const Details: Const Denies chills, Denies fatigue, Denies fever(s), Denies headache(s) and Denies weakness ENT Denies dizziness and Denies headache(s) Card Denies chest pain, Denies lightheadedness, Denies dyspnea and Denies other (Palpitations) Resp Denies cough, Denies dyspnea, Denies wheezing and Denies other ( shortness of breath) GI Denies abdominal pain, Denies melena, Denies hematochezia, Denies change in bowel habits, Denies dyspepsia and Denies nausea Denies hematuria and Denies dysuria Musc Denies abnormal gait, Denies myalgias, Denies arthralgias, Denies numbness and Denies tingling Skin/Breast Denies rash, Denies unusual bruising and Denies wounds Neuro Denies abnormal gait, Denies dizziness, Denies headache(s), Denies memory loss, Denies numbness, Denies Sensory deficit (Neuro), Denies tingling and Denies weakness Psych Reports anxiety related to active mental processing but denies depression., Denies memory loss Endo Denies cold intolerance, Denies fatigue, Denies heat intolerance, Denies polydipsia and Denies polyuria Aller/Immun Denies wheezing Physical exam (Primary Care) Vital Signs: Last Vital Signs Temp 98.2 F 05/10/24 10:48 Pulse 58 05/10/24 10:48 Resp 16 05/10/24 10:48 BP 200/93 H 05/10/24 10:48 Pulse Ox 98 05/10/24 10:48 Oxygen Delivery Method Room Air 05/10/24 10:48 BMI result Body Mass Index 38.2 Tobacco/Smoking Status: Tobacco use Status Tobacco use date assessed 05/10/24 05/10/24 10:52 Patient Tobacco Use Status Former Tobacco user 05/10/24 10:46 e-Cigarette/Vaping Use Never Used 05/10/24 10:46 PHQ-9: PHQ-9 Score PHQ-9: Total score 7 05/10/24 10:46 Depression Screening Interpretation: Positive Thrive Assessment: Date of Thrive Assessment Date Thrive assessed 05/10/24 05/10/24 10:52 Currently or been in a relationship where the following occur: No concerns reported Const Other: General: no acute distress and well developed Nutritional Appearance: well nourished Orientation/consciousness: patient oriented x3 HENMT Head: Yes normocephalic and Yes atraumatic Eyes General: appearance normal, both eyes and all related structures Pupils: Equal, round and reactive pupils present EOM: EOMs intact bilaterally Resp Effort & Inspection: normal respiratory effort Auscultation: clear to auscultation bilaterally Cardio Rate: regular rate Rhythm: regular rhythm Heart sounds: S1 normal heart sound present, S2 normal heart sound present, no gallops, no murmurs and no rubs GI Palpation (GI): No Abdominal aortic bruit present, Soft to palpation, nontender, No hepatosplenomegaly present and No Rebound tenderness present Auscultation: normal bowel sounds General: Yes no CVA tenderness Back/Spine/Pelvis Back: no CVA tenderness Extrem General: Yes normal to inspection, No edema and No calf tenderness Skin General: warm and dry. Normal skin color. Normal skin turgor Neuro General: patient oriented x3, gait normal and no focal neuro deficit Cranial nerves: Yes Equal, round and reactive pupils present Cognition (Neuro): normal cognition Gait exam (Neuro): Normal gait present Sensory Exam: No Sensory deficit (Neuro) Psych Appearance: grossly normal Affect: normal affect Attitude: cooperative Thought process: Normal thought process present Results AMB Hemoglobin A1c AMB Hemoglobin A1c 5.5 % Last Edit by Katherine Grayson on 05/10/24 11:49 Coding Level of Care Code Est Pt Level 4 (80076) Diagnoses Hypertension I10 Anxiety F41.9 Elevated fasting glucose R73.01 Alcohol use disorder F10.90 Additional Codes DARLENE-7 Assessment Billing - DARLENE-7 Assessment Tool: DARLENE-7 Assessment 78234 ([id number]) PHQ-9 - 25899 - PHQ-9 Billing: Yes ([id number]) Assessment & Plan Assessment & Plan (1) Hypertension: Code(s): I10 - Essential (primary) hypertension Category: Medical Plan: Initiate Amlodipine 5 mg daily in addition to Lisinopril 40 mg daily. Monitor blood pressure in one week. Recommend consistent dosing schedule and continued adherence to low-sodium diet. (2) Anxiety: Code(s): F41.9 - Anxiety disorder, unspecified Category: Medical Plan: Prescribe Hydroxyzine 25 mg three times a day as needed for anxiety management. Evaluate the effects on blood pressure over the next week. (3) Elevated fasting glucose: Code(s): R73.01 - Impaired fasting glucose Category: Medical Plan: A1c is 5.5% today, normal. Continue monitoring fasting blood glucose levels, with re-evaluation in subsequent appointments. (4) Alcohol use disorder: Code(s): F10.90 - Alcohol use, unspecified, uncomplicated Category: Medical Plan: Reiterate the risks of high alcohol intake on blood pressure. Encourage reduction to recommended <= drinks per week. Plan During the consultation, I discussed the critical issue of uncontrolled hypertension due to inconsistent medication adherence and excessive alcohol consumption. I explained the relevance of a consistent lisinopril dosing schedule. Patient was advised that alcohol consumption significantly impacts blood pressure and recommended drinking within safe limits. I highlighted potential risks of continued high blood pressure, including cardiovascular events like stroke. The addition of amlodipine to his regimen was agreed upon to better manage hypertension. I also emphasized that anxiety could affect blood pressure control and described hydroxyzine?s benefits. Patient consented to trial hydroxyzine. Orders: Orders AMB Hemoglobin A1c Today Z13.9 - Encounter for screening, unspecified Medications: New hydroxyzine HCl 25 mg PO TID PRN 90 tabs 2RF anxiety amlodipine 5 mg PO DAILY 30 days 30 tabs 3RF Patient Instructions: - Take Amlodipine 5 mg and Lisinopril 40 mg together once daily, either morning or night, consistently. - Maintain low sodium diet. - Limit alcohol to <= drinks per week. - Use Hydroxyzine 25 mg three times a day as needed for anxiety. - Follow up in one week to review blood pressure and overall progress. - Report any new or worsening symptoms immediately, including headaches, dizziness, chest pain, or visual changes. Patient was informed and verbally consented to the use of an ambient scribe for clinic note documentation during this visit.
[2024-05-10 10:48] VITALS: BP 200/93; PULSE 58; RESP 16; TEMP 36.8; O2SAT 98; BMI 38.2
[2024-05-10 11:11] VITALS: BP 190/120; PULSE 64; RESP 18
== END 2024-05-10 11:46 | disposition home or self-care (01) ==
PROVIDERS: PCP Nurse Practitioner Family; Visit Provider Nurse Practitioner Family
DX: I10 Essential (primary) hypertension (principal); F41.9 Anxiety disorder, unspecified; R73.01 Impaired fasting glucose; F10.90 Alcohol use, unspecified, uncomplicated; Z13.9 Encounter for screening, unspecified

== ENCOUNTER → 2024-05-10 10:34 | Outpatient (BNVA) | payer OTHER, SELFPAY | PROVIDERS: PCP Nurse Practitioner Family; Visit Provider Nurse Practitioner Family | DX: I10 Essential (primary) hypertension (principal); F41.9 Anxiety disorder, unspecified; R73.01 Impaired fasting glucose; F10.90 Alcohol use, unspecified, uncomplicated; Z79.899 Other long term (current) drug therapy | CPT/HCPCS: 83036; 96127 ==

== ENCOUNTER 2024-05-17 12:20 | Outpatient (AMB) | payer OTHER, SELFPAY ==
--- NOTE | 2024-05-17 12:23 | A.OFFPC_ITS ---
Vital Signs 05/17/24 12:29 05/17/24 13:00 Height 5 ft 10 in Weight 261 lb 8 oz BMI 37.5 BP 167/98 H 150/96 H Blood Pressure Location Lt brachial Lt brachial Position Sitting Sitting Respiration 16 Pulse 80 Pulse Source Pulse Oximeter Temp 96.8 F Temp Source Temporal Artery Scan Pulse Oximetry (%) 95 Oxygen Delivery Method Room Air Intake Visit Reasons: 1 wk HTN, anxiety Intake Note: patient here for 1 week follow up on HTN and anxiety Tower Technician Required: No Allergies cat dander [CATS] Adverse Reaction (Mild, Verified 05/17/24 12:58) RUNNY NOSE Shellfish Allergy (Mild, Uncoded 05/17/24 12:58) HIVES, SWELLING GRASS Adverse Reaction (Mild, Uncoded 05/17/24 12:58) RUNNY NOSE Medication List - Last Reconciled 05/17/24 by Asif Franco CNP amlodipine 5 mg PO DAILY 30 days hydroxyzine HCl 25 mg PO TID PRN lisinopril 40 mg PO DAILY 30 days Tobacco use date assessed: 05/17/24 Dental Screening Dental Screen Date: 05/17/24 Did you have a dental visit in the last 12 months?: Yes Did you have a dental problem in the last 6 months where you did not have access to dental care?: No Was dental information given to patient?: Patient has dentist HPI HPI Comments History of Present Illness Details The patient is a 63-year-old male presenting with follow-up concerns related to his essential hypertension and anxiety disorder. The patient reports a history of elevated blood pressure readings, with an initial reading of 167/98 mmHg during his visit today. He has been on a regimen of lisinopril 40 mg daily and amlodipine 5 mg daily. However, he is now advised to increase amlodipine to 10 mg daily to better manage his blood pressure. The patient also reports issues with anxiety, for which hydroxyzine was prescribed. While he did try taking hydroxyzine, he noted it made him very drowsy and as if in a cloud, prompting a suggestion to take it at night 25 mg. He describes his anxiety as being manageable, feeling normal, but attributes it often to his mind not shutting off. His dietary habits include adherence to a low sodium diet. In terms of alcohol consumption, he's had a single drink since his last visit two weeks ago. Social History - Adheres to a low sodium diet. - Has increased alcohol reduction, with only one drink since last visit. - Reports limited exercise; occasionally goes for a walk. [facility] Medical History (Updated 05/10/24 @ 11:50 by Asif Franco CNP) Shingles Headache Arthritis Sinusitis Diverticulitis Surgical History (Updated 04/12/24 @ 11:25 by Darshana Olguin MA) History of colonoscopy Family History (Updated 04/12/24 @ 11:27 by Darshana Olguin MA) Paternal Grandfather Substance abuse Cancer Father Asthma Clotting disorder Mother Hypertension High cholesterol Clotting disorder Maternal Grandmother Cardiovascular disease Maternal Grandfather Clotting disorder Social History (Updated 04/12/24 @ 11:21 by Darshana Olguin MA) Household Members: Spouse Both parents involved: No Caregiver staying overnight: No Housing: House Are you a primary health care recruiter to a significant other at home: Yes Do you presently have visiting nurse or other home services: No 75 years or older and lives alone: No Alcohol intake: current Alcohol intake frequency: a few times a week Patient Tobacco Use Status: Former Tobacco user Years Smoked: 30 e-Cigarette/Vaping Use: Never Used Second Hand Smoke Exposure: No service: No Current occupational status: retired Cognitive needs: No Hearing needs: No Vision needs: Yes (wear glasses) Questionnaire PHQ-9 Over the last 2 weeks, how often have you been bothered by any of the following problems? 1. Little interest or pleasure in doing things: several days 2. Feeling down, depressed, or hopeless: several days 3. Trouble falling or staying asleep, or sleeping too much: several days 4. Feeling tired or having little energy: several days 5. Poor appetite or overeating: several days 6. Feeling bad about yourself - or that you are a failure or have let yourself or your family down: several days 7. Trouble concentrating on things, such as reading the newspaper or watching television: several days 8. Moving or speaking so slowly that other people could have noticed. Or the opposite - being so fidgety or restless that you have been moving around a lot more than usual: not at all 9. Thoughts that you would be better off or of hurting yourself in some way: not at all Total score: 7 Depression Screening Interpretation: Positive Depression Screening Done: Yes 73639 - PHQ-9 Billing: Yes Source: Developed by Drs. Kervin Morales, Prema Alvarado, Dom Perez and colleagues, with an educational maddy from [employer]. Thrive Questionnaire Date Thrive assessed: 05/17/24 I am a: Patient What is your living situation today?: I have a steady place to live Within the past 12 months, did the food you bought not last and you didn't have the money to get more?: Never true Within the past 12 months, did you worry whether your food would run out before you got money to buy more?: Never true Do you have trouble paying for medicines?: No Do you have trouble getting transportation to medical appointments?: No Do you have trouble paying your heating and electricity bill?: No Do you have trouble taking care of your child, family member or friend?: No Do you have trouble with day-to-day activities such as bathing, preparing meals, shopping, managing finances, etc.?: No Are you currently unemployed and looking for a job?: No Are you interested in more education?: No Please select the resources that you would like help with: None Currently or been in a relationship where the following occur: No concerns reported THRIVE Score: 0 AUDIT C Alcohol Use Questionnaire (AUDIT-C) 1. How often do you have a drink containing alcohol?: Monthly or less 2. How many drinks containing alcohol do you have on a typical day when you are drinking?: 5 or 6 3. How often do you have six or more drinks on one occasion?: Monthly Total Score: 5 DARLENE-7 AMB Questionnaire DARLENE-7 Date DARLENE - 7 assessed: 05/17/24 Feeling nervous, anxious, or on edge: 1 = Several days Not being able to stop or control worryin = Several days Worrying too much about different things: 1 = Several days Trouble relaxin = Several days Being so restless that it is hard to sit still: 1 = Several days Becoming easily annoyed or irritable: 1 = Several days Feeling afraid as if something awful might happen: 0 = Not at all Total DARLENE-7 score (0-4 normal; 5-9 mild; 10-14 moderate; 15-21 severe): 6 Source: Developed by Drs. Kervin Morales, Prema Alvarado, Dom Perez and colleagues, with an educational maddy from [employer]. DARLENE-7 Assessment Billing DARLENE-7 Assessment Tool: DARLENE-7 Assessment 57808 Physical exam (Primary Care) Vital Signs: Last Vital Signs Temp 96.8 F 05/17/24 12:29 Pulse 80 05/17/24 12:29 Resp 16 05/17/24 12:29 BP 167/98 H 05/17/24 12:29 Pulse Ox 95 05/17/24 12:29 Oxygen Delivery Method Room Air 05/17/24 12:29 BMI result Body Mass Index 37.5 Tobacco/Smoking Status: Tobacco use Status Tobacco use date assessed 05/17/24 05/17/24 12:34 Patient Tobacco Use Status Former Tobacco user 05/17/24 12:27 e-Cigarette/Vaping Use Never Used 05/17/24 12:27 PHQ-9: PHQ-9 Score PHQ-9: Total score 7 05/17/24 12:34 Depression Screening Interpretation: Positive Thrive Assessment: Date of Thrive Assessment Date Thrive assessed 05/17/24 05/17/24 12:34 Currently or been in a relationship where the following occur: No concerns r eported Coding Level of Care Code Est Pt Level 4 (73597) Diagnoses Hypertension I10 Anxiety F41.9 Additional Codes DARLENE-7 Assessment Billing - DARLENE-7 Assessment Tool: DARLENE-7 Assessment 19485 ([id number]) PHQ-9 - 07076 - PHQ-9 Billing: Yes ([id number]) Assessment & Plan Assessment & Plan (1) Hypertension: Code(s): I10 - Essential (primary) hypertension Category: Medical Plan: Increase amlodipine to 10 mg daily for better blood pressure control. - Continue lisinopril 40 mg daily. - Re-evaluate blood pressure control in two weeks. (2) Anxiety: Code(s): F41.9 - Anxiety disorder, unspecified Category: Medical Plan: Continue hydroxyzine 25 mg at night if anxiety impacts sleep. - Monitor anxiety symptoms and adjust as necessary. Plan During our discussion, I emphasized the importance of adjusting his medication regimen to better manage his essential hypertension. By increasing amlodipine to 10 mg daily, I aim to improve his blood pressure control. I explained that continuing lisinopril 40 mg daily remains critical. Adjustments to hydroxyzine for his anxiety were discussed, with a recommendation to take it at night due to its sedative effects. I encouraged maintaining a low-sodium diet and reducing alcohol consumption, given their impact on hypertension. Regular exercise was recommended to augment his treatment plan. Follow-up is set for two weeks to monitor progress and adjust treatment as necessary. Medications: New amlodipine 10 mg PO DAILY 30 days 30 tabs 3RF Discontinued amlodipine Discontinued Reason: Doctor's Order 5 mg PO DAILY 30 days 30 tabs 3RF Patient Instructions: - Increase amlodipine to 10 mg daily by taking two 5 mg tablets at once. - Continue taking lisinopril 40 mg daily. - Take hydroxyzine 25 mg at night if needed for anxiety. - Maintain a low sodium diet. - Limit alcohol intake; one drink since the last visit is commendable. - Attempt to increase exercise frequency, starting with regular walks. - Schedule follow-up in two weeks to assess blood pressure and anxiety control. Patient was informed and verbally consented to the use of an ambient scribe for clinic note documentation during this visit.
[2024-05-17 12:29] VITALS: BP 167/98; PULSE 80; RESP 16; TEMP 36; O2SAT 95; BMI 37.5
[2024-05-17 13:00] VITALS: BP 150/96
== END 2024-05-17 13:06 | disposition home or self-care (01) ==
PROVIDERS: PCP Nurse Practitioner Family; Visit Provider Nurse Practitioner Family
DX: I10 Essential (primary) hypertension (principal); F41.9 Anxiety disorder, unspecified

== ENCOUNTER → 2024-05-17 12:20 | Outpatient (BNVA) | payer OTHER, SELFPAY | PROVIDERS: PCP Nurse Practitioner Family; Visit Provider Nurse Practitioner Family | DX: I10 Essential (primary) hypertension (principal); F41.9 Anxiety disorder, unspecified; Z79.899 Other long term (current) drug therapy | CPT/HCPCS: 96127 ==

== ENCOUNTER 2024-05-31 09:30 | Outpatient (AMB) | payer OTHER, SELFPAY ==
--- NOTE | 2024-05-31 09:31 | MHC.PC.OV ---
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 Allergies cat dander [CATS] Adverse Reaction (Mild, Verified 05/31/24 10:01) RUNNY NOSE Shellfish Allergy (Mild, Uncoded 05/31/24 10:01) HIVES, SWELLING GRASS Adverse Reaction (Mild, Uncoded 05/31/24 10:01) RUNNY NOSE Medication List - Last Reconciled 05/31/24 by Asif Franco CNP amlodipine 10 mg PO DAILY 30 days hydroxyzine HCl 25 mg PO TID PRN lisinopril 40 mg PO DAILY 30 days Tobacco use date assessed: 05/31/24 Dental Screening Dental Screen Date: 05/31/24 Did you have a dental visit in the last 12 months?: Yes Did you have a dental problem in the last 6 months where you did not have access to dental care?: No Was dental information given to patient?: Patient has dentist HPI HPI Comments History of Present Illness Details 63-year-old male presents for hypertension follow-up. He admits to taking his medications as prescribed without adverse reactions. His anxiety symptoms are generally controlled. However, his mind still races as usual for the past 4 years. He has been making healthy dietary changes, including low-sodium diet. He has been exercising routinely. He has significantly cut down on drinking; he drinks 1-2 drinks twice weekly. No acute symptoms at this time. [facility] Medical History (Updated 05/10/24 @ 11:50 by Asif Franco CNP) Shingles Headache Arthritis Sinusitis Diverticulitis Surgical History (Updated 04/12/24 @ 11:25 by Darshana Olguin MA) History of colonoscopy Family History (Updated 04/12/24 @ 11:27 by Darshana Olguin MA) Paternal Grandfather Substance abuse Cancer Father Asthma Clotting disorder Mother Hypertension High cholesterol Clotting disorder Maternal Grandmother Cardiovascular disease Maternal Grandfather Clotting disorder Social History (Updated 04/12/24 @ 11:21 by Darshana Olguin MA) Household Members: Spouse Both parents involved: No Caregiver staying overnight: No Housing: House Are you a primary pharmacist critical care to a significant other at home: Yes Do you presently have visiting nurse or other home services: No 75 years or older and lives alone: No Alcohol intake: current Alcohol intake frequency: a few times a week Patient Tobacco Use Status: Former Tobacco user Years Smoked: 30 e-Cigarette/Vaping Use: Never Used Second Hand Smoke Exposure: No service: No Current occupational status: retired Cognitive needs: No Hearing needs: No Vision needs: Yes (wear glasses) Questionnaire Thrive Questionnaire Date Thrive assessed: 04/07/24 I am a: Patient What is your living situation today?: I have a steady place to live Within the past 12 months, did the food you bought not last and you didn't have the money to get more?: Never true Within the past 12 months, did you worry whether your food would run out before you got money to buy more?: Never true Do you have trouble paying for medicines?: No Do you have trouble getting transportation to medical appointments?: No Do you have trouble paying your heating and electricity bill?: No Do you have trouble taking care of your child, family member or friend?: No Do you have trouble with day-to-day activities such as bathing, preparing meals, shopping, managing finances, etc.?: No Are you currently unemployed and looking for a job?: No Are you interested in more education?: No Please select the resources that you would like help with: None Currently or been in a relationship where the following occur: No concerns reported THRIVE Score: 0 DARLENE-7 AMB Questionnaire DARLENE-7 Date DARLENE - 7 assessed: 05/17/24 Source: Developed by Drs. Kervin Morales, Prema Alvarado, Dom Perez and colleagues, with an educational maddy from [employer]. Review of Systems Const Details: Const Denies chills, Denies fatigue, Denies fever(s), Denies headache(s) and Denies weakness ENT Denies dizziness and Denies headache(s) Card Denies chest pain, Denies lightheadedness, Denies dyspnea and Denies other (Palpitations) Resp Denies cough, Denies dyspnea, Denies wheezing and Denies other ( shortness of breath) GI Denies abdominal pain, Denies melena, Denies hematochezia, Denies change in bowel habits, Denies dyspepsia and Denies nausea Denies hematuria and Denies dysuria Musc Denies abnormal gait, Denies myalgias, Denies arthralgias, Denies numbness and Denies tingling Skin/Breast Denies rash, Denies unusual bruising and Denies wounds Neuro Denies abnormal gait, Denies dizziness, Denies headache(s), Denies memory loss, Denies numbness, Denies Sensory deficit (Neuro), Denies tingling and Denies weakness Psych Denies anxiety, Denies depression, Denies memory loss Endo Denies cold intolerance, Denies fatigue, Denies heat intolerance, Denies polydipsia and Denies polyuria Aller/Immun Denies wheezing Physical exam (Primary Care) Vital Signs: Last Vital Signs Temp 97.8 F 05/31/24 09:34 Pulse 81 05/31/24 09:34 Resp 16 05/31/24 09:34 BP 145/72 H 05/31/24 09:34 Pulse Ox 96 05/31/24 09:34 Oxygen Delivery Method Room Air 05/31/24 09:34 BMI result Body Mass Index 36.9 Tobacco/Smoking Status: Tobacco use Status Tobacco use date assessed 05/31/24 05/31/24 09:37 Patient Tobacco Use Status Former Tobacco user 05/31/24 09:33 e-Cigarette/Vaping Use Never Used 05/31/24 09:33 Thrive Assessment: Date of Thrive Assessment Date Thrive assessed 04/07/24 05/31/24 09:33 Currently or been in a relationship where the following occur: No concerns reported Const Other: General: no acute distress and well developed Nutritional Appearance: well nourished Orientation/consciousness: patient oriented x3 HENMT Head: Yes normocephalic and Yes atraumatic Eyes General: appearance normal, both eyes and all related structures Pupils: Equal, round and reactive pupils present EOM: EOMs intact bilaterally Resp Effort & Inspection: normal respiratory effort Auscultation: clear to auscultation bilaterally Cardio Rate: regular rate Rhythm: regular rhythm Heart sounds: S1 normal heart sound present, S2 normal heart sound present, no gallops, no murmurs and no rubs GI Palpation (GI): No Abdominal aortic bruit present, Soft to palpation, nontender, No hepatosplenomegaly present and No Rebound tenderness present Auscultation: normal bowel sounds General: Yes no CVA tenderness Back/Spine/Pelvis Back: no CVA tenderness Cervical Spine: cervical ROM normal and No Cervical spine tenderness Thoracic/Lumbar Spine: thoraco-lumbar ROM normal, No pain with thoraco-lumbar ROM, No thoracic spinal tenderness and No lumbar spinal tenderness Extrem General: Yes normal to inspection, No edema and No calf tenderness Skin General: warm and dry. Normal skin color. Normal skin turgor Neuro General: patient oriented x3, gait normal and no focal neuro deficit Cranial nerves: Yes Equal, round and reactive pupils present Cognition (Neuro): normal cognition Gait exam (Neuro): Normal gait present Sensory Exam: No Sensory deficit (Neuro) Psych Appearance: grossly normal Affect: normal affect Attitude: cooperative Thought process: Normal thought process present Coding Level of Care Code Est Pt Level 3 (66069) Diagnoses Hypertension I10 Anxiety F41.9 Assessment & Plan Assessment & Plan (1) Hypertension: Code(s): I10 - Essential (primary) hypertension Category: Medical Plan: Resting blood pressure is 130/90, above goal of less than 140/90. Continue current treatment regimen. Low-sodium diet encouraged. Follow-up in 3 weeks or sooner with symptoms or concerns. Verbalized understanding and agreed with the treatment plan. (2) Anxiety: Code(s): F41.9 - Anxiety disorder, unspecified Category: Medical Plan: Continue to take hydroxyzine as prescribed. Routine exercise encouraged. Follow-up with worsening or new symptoms. Verbalized understanding and agreed with the plan.
[2024-05-31 09:34] VITALS: BP 145/72; PULSE 81; RESP 16; TEMP 36.6; O2SAT 96; BMI 36.9
[2024-05-31 10:04] VITALS: BP 130/90
== END 2024-05-31 10:06 | disposition home or self-care (01) ==
PROVIDERS: PCP Nurse Practitioner Family; Visit Provider Nurse Practitioner Family
DX: I10 Essential (primary) hypertension (principal); F41.9 Anxiety disorder, unspecified

== ENCOUNTER → 2024-05-31 09:30 | Outpatient (BNVA) | payer OTHER, SELFPAY | PROVIDERS: PCP Nurse Practitioner Family; Visit Provider Nurse Practitioner Family ==

== ENCOUNTER 2024-05-31 11:21 | Outpatient (AMB) | payer OTHER, SELFPAY ==
[2024-05-31 11:29] VITALS: BP 138/92; PULSE 84; O2SAT 93; BMI 36.9
--- NOTE | 2024-05-31 11:29 | MHC.OFFVIS ---
Vital Signs 05/31/24 11:29 Height 5 ft 10 in Weight 257 lb 8 oz BMI 36.9 BP 138/92 H Blood Pressure Location Rt brachial Position Sitting Pulse 84 Pulse Source Pulse Oximeter Pulse Oximetry (%) 93 Oxygen Delivery Method Room Air Intake Visit Reasons: INP-Sleep disorder Intake Note: On CPAP and in need of new supplies Accompanied by: Self / Same As Patient Allergies cat dander [CATS] Adverse Reaction (Mild, Verified 05/31/24 11:32) RUNNY NOSE Shellfish Allergy (Mild, Uncoded 05/31/24 10:01) HIVES, SWELLING GRASS Adverse Reaction (Mild, Uncoded 05/31/24 10:01) RUNNY NOSE Medication List - Last Reconciled 05/31/24 by JULISSA Golden amlodipine 10 mg PO DAILY 30 days hydroxyzine HCl 25 mg PO TID PRN lisinopril 40 mg PO DAILY 30 days Do you need a note to return to daycare/school/sports/work: No HPI Comments Details: 63-yr-old male presents for new in-person patient visit for sleep apnea as he is in need of a new PAP tx machine. Patient reports he was diagnosed with severe sleep ap[place] [facility] [place] He states prior to this, his told him that he snores. He uses his original CPAP every night. He states he uses his CPAP out of fear that he will stop breathing, however he has never had a robust improvement in his daytime energy s/s from PAP tx. He does still have fragmented sleep, sometimes from the mask shifting but other times there is no clear reason In the morning, his CPAP usually displays a green smiley face. His CPAP recently notified him that it has come to the end of its life. His respiratory company is [employer]. Sleep history questionnaire: Have you ever been diagnosed with a sleep disorder? Yes Have you ever had a sleep study in the past? Yes Have you ever been treated for a sleep disorder? Yes, on CPAP Do you take medications/supplements for a sleep disorder? Rarely uses hydroxyzine for anxiety and sleep. When using CPAP, current sleep symptom questionnaire: Pt reports difficulty initiating sleep if he has a busy day/month, difficulty maintaining sleep, unrefreshing sleep, daytime sleepiness, easily falls asleep when inactive, fatigue. Pt reports snoring when he sleeps w/o his CPAP.. Pt reports rare nocturnal dry mouth- if his machine is running low on water. Does use distilled water. Pt reports bruxism and does not use a mouth guard Pt reports headaches upon awakening- states has a constant headache over the last 20 yrs. Pt reports very rare GERD. Pt reports rare nocturia- if he been out late and had alcohol. Pt reports rare nocturnal leg cramps. Pt reports he is prone to stand even at social functions. Pt reports ruminating thoughts, PTSD s/s, sleep paralysis, early onset REM sleep, vivid dreams. Pt denies family h/o similar sleep s/s. 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 Retired from the [employer]. History of service- 23 yrs of [employer]-- [facility]. Usual bedtime varies, based on work schedule Usual wake-up time also varies, based on work schedule. Usually sleeps 6-8 hrs per night. Naps: Takes unintentional unscheduled naps, unless he is going to work at night. Sleep environment: comfortable, cool- has a double fan, dark, uses a radio to minimize tinnitus and thoughts. Electronic use in bedroom: just a radio Exercise: Just started going to the gym last week- weight lifting and treadmill. Caffeine or other stimulants: A large Yeti- 32 oz coffe e whenever he wakes up. 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 care manager to a significant other at home: Yes Do you presently have visiting nurse or other home services: No 75 years or older and lives alone: No Alcohol intake: current Alcohol intake frequency: a few times a week Patient Tobacco Use Status: Former Tobacco user Years Smoked: 30 e-Cigarette/Vaping Use: Never Used Second Hand Smoke Exposure: No service: No Current occupational status: retired Cognitive needs: No Hearing needs: No Vision needs: Yes (wear glasses) Physical Exam Vital Signs: Last Vital Signs Pulse 84 05/31/24 11:29 BP 138/92 H 05/31/24 11:29 Pulse Ox 93 05/31/24 11:29 Oxygen Delivery Method Room Air 05/31/24 11:29 BMI result Body Mass Index 36.9 Const General: no acute distress Orientation/consciousness: patient oriented x3 HEENT Other: Mallampati stage 4 Resp Effort & Inspection: normal respiratory effort and able to speak in complete sentences Auscultation: clear to auscultation bilaterally Cardio Rate: regular rate Rhythm: regular rhythm Neuro General: patient oriented x3 Psych Mental Status: mental status grossly normal Speech and movement: Clear speech present Attitude: cooperative Assessment & Plan Assessment & Plan (1) Sleep apnea: Code(s): G47.30 - Sleep apnea, unspecified Category: Medical (2) Hypersomnia: Code(s): G47.10 - Hypersomnia, unspecified Category: Medical (3) Sleep disturbance: Code(s): G47.9 - Sleep disorder, unspecified Category: Medical (4) Sleep paralysis: Code(s): G47.8 - Other sleep disorders Category: Medical Plan As patient has uncontrolled symptoms of hypersomnia despite Pap therapy compliance with his current device, and patient is at least 30 lbs heavier than he was at his last sleep study 10 years ago, patient is advised to undergo sleep study In-lab PSG with split night PAP titration if indicated- to assess status of sleep apnea, as well as for sleep paralysis, periodic limb movements of sleep. Once sleep study results available, we will order a new PAP therapy device. Current respiratory supplier is [employer] Once patient has started on new Pap therapy device, monitor affect on hypersomnia and constant daily headache. Information shared on sleep hygiene and cognitive behavioral therapy (CBTi) resources. Patient encouraged to continue positive lifestyle modifications, such as eating a healthy diet, increasing regular physical activity through cardio and weight training exercises at the gym. Will follow-up upon review of above and patient to follow-up in clinic in 6 months or sooner prn.. Coding Level of Care Code New Pt Level 4 (60850) Diagnoses Sleep apnea G47.30 Hypersomnia G47.10 Sleep disturbance G47.9 Sleep paralysis G47.8 [place] Sleepiness Scale Questions Sitting and reading: high chance of dozing Watching TV: high chance of dozing Sitting inactive in a theater, movie etc.: high chance of dozing As a passenger in a car for an hour without break: slight chance of dozing Lying down in the afternoon when circumstances permit: high chance of dozing Sitting and talking to someone: would never doze Sitting quietly after lunch without alcohol: high chance of dozing In a car, while stopped for a few minutes in the traffic: would never doze ESS < 10: normal, ESS > 12: pathologic: 16
== END 2024-05-31 12:23 | disposition home or self-care (01) ==
PROVIDERS: PCP Nurse Practitioner Family; Visit Provider Nurse Practitioner Family
DX: G47.30 Sleep apnea, unspecified (principal); G47.10 Hypersomnia, unspecified; G47.9 Sleep disorder, unspecified; G47.8 Other sleep disorders
CPT/HCPCS: 99204

== ENCOUNTER 2024-06-21 10:34 | Outpatient (AMB) | payer OTHER, SELFPAY ==
--- NOTE | 2024-06-21 10:35 | A.OFFPC_ITS ---
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: No Allergies cat dander [CATS] Adverse Reaction (Mild, Verified 06/21/24 11:14) RUNNY NOSE Shellfish Allergy (Mild, Uncoded 06/21/24 11:14) HIVES, SWELLING GRASS Adverse Reaction (Mild, Uncoded 06/21/24 11:14) RUNNY NOSE Medication List - Last Reconciled 06/21/24 by Asif Franco CNP amlodipine 10 mg PO DAILY 30 days hydroxyzine HCl 25 mg PO TID PRN lisinopril 40 mg PO DAILY 30 days Tobacco use date assessed: 06/21/24 Dental Screening Dental Screen Date: 06/21/24 Did you have a dental visit in the last 12 months?: Yes Did you have a dental problem in the last 6 months where you did not have access to dental care?: No Was dental information given to patient?: Patient has dentist HPI HPI Comments History of Present Illness Details 63-year-old male presents for hypertensi on follow-up. He admits to taking his medications as prescribed without adverse reactions. He has been making healthy dietary choices, including low-sodium. He offers no complaints and denies acute symptoms at this time. [facility] Medical History Shingles Headache Arthritis Sinusitis Diverticulitis Surgical History History of colonoscopy Family History Paternal Grandfather Substance abuse Cancer Father Asthma Clotting disorder Mother Hypertension High cholesterol Clotting disorder Maternal Grandmother Cardiovascular disease Maternal Grandfather Clotting disorder Social History Household Members: Spouse Both parents involved: No Caregiver staying overnight: No Housing: House Are you a primary care process manager to a significant other at home: Yes Do you presently have visiting nurse or other home services: No 75 years or older and lives alone: No Alcohol intake: current Alcohol intake frequency: a few times a week Patient Tobacco Use Status: Former Tobacco user Years Smoked: 30 e-Cigarette/Vaping Use: Never Used Second Hand Smoke Exposure: No service: No Current occupational status: retired Cognitive needs: No Hearing needs: No Vision needs: Yes (wear glasses) Questionnaire Thrive Questionnaire Date Thrive assessed: 04/07/24 I am a: Patient What is your living situation today?: I have a steady place to live Within the past 12 months, did the food you bought not last and you didn't have the money to get more?: Never true Within the past 12 months, did you worry whether your food would run out before you got money to buy more?: Never true Do you have trouble paying for medicines?: No Do you have trouble getting transportation to medical appointments?: No Do you have trouble paying your heating and electricity bill?: No Do you have trouble taking care of your child, family member or friend?: No Do you have trouble with day-to-day activities such as bathing, preparing meals, shopping, managing finances, etc.?: No Are you currently unemployed and looking for a job?: No Are you interested in more education?: No Please select the resources that you would like help with: None Currently or been in a relationship where the following occur: No concerns reported THRIVE Score: 0 DARLENE-7 AMB Questionnaire DARLENE-7 Date DARLENE - 7 assessed: 05/17/24 Source: Developed by Drs. Kervin Morales, Prema Alvarado, Dom Perez and colleagues, with an educational maddy from [employer]. Review of Systems Const Details: Const Denies chills, Denies fatigue, Denies fever(s), Denies headache(s) and Denies weakness ENT Denies dizziness and Denies headache(s) Card Denies chest pain, Denies lightheadedness, Denies dyspnea and Denies other (Palpitations) Resp Denies cough, Denies dyspnea, Denies wheezing and Denies other ( shortness of breath) GI Denies abdominal pain, Denies melena, Denies hematochezia, Denies change in bowel habits, Denies dyspepsia and Denies nausea Denies hematuria and Denies dysuria Musc Denies abnormal gait, Denies myalgias, Denies arthralgias, Denies numbness and Denies tingling Skin/Breast Denies rash, Denies unusual bruising and Denies wounds Neuro Denies abnormal gait, Denies dizziness, Denies headache(s), Denies memory loss, Denies numbness, Denies Sensory deficit (Neuro), Denies tingling and Denies weakness Psych Denies anxiety, Denies depression, Denies memory loss Endo Denies cold intolerance, Denies fatigue, Denies heat intolerance, Denies polydipsia and Denies polyuria Aller/Immun Denies wheezing Physical exam (Primary Care) Vital Signs: Last Vital Signs Temp 98.0 F 06/21/24 10:39 Pulse 66 06/21/24 10:39 Resp 16 06/21/24 10:39 BP 137/76 06/21/24 10:39 Pulse Ox 98 06/21/24 10:39 Oxygen Delivery Method Room Air 06/21/24 10:39 BMI result Body Mass Index 36.5 Tobacco/Smoking Status: Tobacco use Status Tobacco use date assessed 06/21/24 06/21/24 10:41 Patient Tobacco Use Status Former Tobacco user 06/21/24 10:38 e-Cigarette/Vaping Use Never Used 06/21/24 10:38 Thrive Assessment: Date of Thrive Assessment Date Thrive assessed 04/07/24 06/21/24 10:38 Currently or been in a relationship where the following occur: No concerns reported Const Other: General: no acute distress and well developed Nutritional Appearance: well nourished Orientation/consciousness: patient oriented x3 HENMT Head: Yes normocephalic and Yes atraumatic Eyes General: appearance normal, both eyes and all related structures Pupils: Equal, round and reactive pupils present EOM: EOMs intact bilaterally Resp Effort & Inspection: normal respiratory effort Auscultation: clear to auscultation bilaterally Cardio Rate: regular rate Rhythm: regular rhythm Heart sounds: S1 normal heart sound present, S2 normal heart sound present, no gallops, no murmurs and no rubs GI Palpation (GI): No Abdominal aortic bruit present, Soft to palpation, nontender, No hepatosplenomegaly present and No Rebound tenderness present Auscultation: normal bowel sounds General: Yes no CVA tenderness Back/Spine/Pelvis Back: no CVA tenderness Cervical Spine: cervical ROM normal and No Cervical spine tenderness Thoracic/Lumbar Spine: thoraco-lumbar ROM normal, No pain with thoraco-lumbar ROM, No thoracic spinal tenderness and No lumbar spinal tenderness Extrem General: Yes normal to inspection, No edema and No calf tenderness Skin General: warm and dry. Normal skin color. Normal skin turgor Neuro General: patient oriented x3, gait normal and no focal neuro deficit Cranial nerves: Yes Equal, round and reactive pupils present Cognition (Neuro): normal cognition Gait exam (Neuro): Normal gait present Sensory Exam: No Sensory deficit (Neuro) Psych Appearance: grossly normal Affect: normal affect Attitude: cooperative Thought process: Normal thought process present Coding Level of Care Code Est Pt Level 3 (59466) Diagnoses Hypertension I10 Assessment & Plan Assessment & Plan (1) Hypertension: Code(s): I10 - Essential (primary) hypertension Category: Medical Plan: Resting blood pressure is 116/76, within goal of less than 140/90. Continue current treatment regimen. Follow-up in 3 months for hypertension and anxiety or sooner with symptoms or concerns. Verbalized understanding and agreed with treatment plan.
[2024-06-21 10:39] VITALS: BP 137/76; PULSE 66; RESP 16; TEMP 36.7; O2SAT 98; BMI 36.5
[2024-06-21 11:18] VITALS: BP 116/76
== END 2024-06-21 11:19 | disposition home or self-care (01) ==
PROVIDERS: PCP Nurse Practitioner Family; Visit Provider Nurse Practitioner Family
DX: I10 Essential (primary) hypertension (principal)

== ENCOUNTER → 2024-06-21 10:34 | Outpatient (BNVA) | payer OTHER, SELFPAY | PROVIDERS: PCP Nurse Practitioner Family; Visit Provider Nurse Practitioner Family ==

== ENCOUNTER 2024-09-12 10:52 | Outpatient (AMB) | payer OTHER, SELFPAY ==
--- NOTE | 2024-09-12 10:57 | A.OFFVIS_ITS ---
Vital Signs 09/12/24 11:01 Height 5 ft 10 in Weight 259 lb BMI 37.2 BP 142/69 H Blood Pressure Location Lt brachial Position Sitting Pulse 65 Pulse Oximetry (%) 98 Oxygen Delivery Method Room Air Intake Visit Reasons: Colonoscopy screening Intake Note: Patient new consult for his 2nd Colonoscopy screening. Patient have a Colonoscopy almost 10 years at [facility] [place], denies any GI issues for today visit. Neurocritical Care Physician Required: No Accompanied by: Self / Same As Patient Allergies cat dander [CATS] Adverse Reaction (Mild, Verified 06/21/24 11:14) RUNNY NOSE Shellfish Allergy (Mild, Uncoded 06/21/24 11:14) HIVES, SWELLING GRASS Adverse Reaction (Mild, Uncoded 06/21/24 11:14) RUNNY NOSE HPI HPI Colonoscopy screening: Details: 63 year old? male with past medical history of and anxiety and depression, sleep apnea, hypertension is here today for pre colonoscopy screening.? Patient was sent to us by his PCP.? Last colonoscopy 06/06/2008? Patient denies any gastrointestinal symptoms in the past or at present.? Denies any personal or family history of gastrointestinal disease, colon polyps, or CRC.? Denies history of difficulty with sedation or anesthesia in the past.? History of sleep apnea, uses CPAP. Denies any history of cardiac, renal, pulmonary, or hepatic disease.?? No history of infectious? diseases like hepatitis A, B, C, HIV or tuberculosis.? 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 to a significant other at home: Yes Do you presently have visiting nurse or other home services: No 75 years or older and lives alone: No Alcohol intake: current Alcohol intake frequency: a few times a week Patient Tobacco Use Status: Former Tobacco user Years Smoked: 30 e-Cigarette/Vaping Use: Never Used Second Hand Smoke Exposure: No service: No Current occupational status: retired Cognitive needs: No Hearing needs: No Vision needs: Yes (wear glasses) Physical Exam Vital Signs: Last Vital Signs Pulse 65 09/12/24 11:01 BP 142/69 H 09/12/24 11:01 Pulse Ox 98 09/12/24 11:01 Oxygen Delivery Method Room Air 09/12/24 11:01 BMI result Body Mass Index 37.2 Const General: healthy appearing, no acute distress and well developed Nutritional Appearance: well nourished Orientation/consciousness: patient oriented x3 Resp Effort & Inspection: normal respiratory effort, able to speak in complete sentences, no tracheal deviation and symmetric chest movement Auscultation: clear to auscultation bilaterally Cardio Rate: regular rate GI Inspection: Yes normal to inspection and No distended Palpation (GI): Soft to palpation, not firm, nontender and No hepatosplenomegaly present Auscultation: normal bowel sounds General: Yes no CVA tenderness Back/Spine/Pelvis Back: no CVA tenderness Skin General skin exam: elasticity normal, turgor normal and dry skin Neuro General: patient oriented x3 Psych Appearance: grossly normal Mental Status: mental status grossly normal Assessment & Plan Assessment & Plan (1) Colon cancer screening: Code(s): Z12.11 - Encounter for screening for malignant neoplasm of colon Category: Medical Plan Patient denies any GI, cardiac or respiratory symptoms.? Denies any issues with anesthesia in the past.? History of sleep apnea uses CPAP. No history infectious diseases in the past or present.? Not on any anticoagulation therapy.? No family or personal history of colon cancer or polyps.? Patient denies melena, hematochezia, unintentional weight loss or ribbon like stools.? Discussed at length the pre-procedure,? prep, diet & medications as well as what to expect prior, during and after the procedure.?? Stressed the importance of good bowel prep.? Recommended the use of Vaseline or Calmoseptine OTC & baby wipes with bowel movements to promote comfort.? ?Patient verbalizes understanding and agrees to plan of care.? He was given the opportunity to ask questions and all questions answered.? We will see him after the procedure.? Medications: New polyethylene glycol 3350 (Miralax) As directed by gastroenterology department at [facility] 238 grams PO ONCE 238 grams 0RF Z12.11 - Encounter for screening for malignant neoplasm of colon bisacodyl (Dulcolax (bisacodyl)) take 4 tabs at noon the day before your colonoscopy 20 mg (4 x 5 mg) PO ONCE 4 tabs 0RF 1 day Z12.11 - Encounter for screening for malignant neoplasm of colon Coding Level of Care Code New Pt Level 3 (39794) Diagnoses Colon cancer screening Z12.11 Time Spent (min) 40 Comment 30 minutes spent with patient and additional 10 minutes spent reviewing his records
[2024-09-12 11:01] VITALS: BP 142/69; PULSE 65; O2SAT 98; BMI 37.2
--- OUTSIDE RECORDS SUMMARY | 2024-09-12 12:18 | XMS_ITS | Data Portability ---
Author Organization [facility] Address [address] [place] [address] Assessment No assessment recorded. Plan of Treatment Reminders Order Date Submit Date Provider Last Modified By Organization Details Last Modified Time Details Appointments None recorded . Lab rapid strep group A, throat 023 09/30/19 [email or web address] 247 _[facility], [address] [place] [address], [phone], 15:29:26 Referral None recorded . Procedures None recorded . Surgeries None recorded . Imaging None recorded . Medication Orders None recorded . Patient TargetsNo targets recorded. Patient InstructionsNo instructions recorded. Reason for Referral None Reported. Results Created Date Observation Date Name Description Value Unit Range Abnormal Flag Note LastModifiedBy Organization Detail LastModifiedTime 09/30/1909/29/2022 rapid strep group A, throa t Unknown Analyte negati ve Not Available [facility] [address] [place] [address], [phone], 09/29/2022 14:55:40 09/30/1909/29/2022 rapid strep group A, throa t Unknown Analyte Normal = Negati ve Not Available [facility] [address] [place] [address], [phone], 09/29/2022 14:55:40 Result Notes None recorded. Medical Equipment None Reported. Allergies Allergen ID Allergen Name Allergen Category Reaction Reaction Severity Criticality Documentation Date Start Date Code Code System Note Provider Name and Address Organization Details Recorded Time [id number] cat dander environme nt Not available Not available Not available 09/29/2022 [id number] JANY BONDS blaze, [place] - [facility] 3 14:53:49 419134 shellfish derived food,medi cation Not available Not available Not available 09/29/2022 08172 JANY thakur, [place] - [facility] 14:53:57 Medications Not known to be on any medication Vitals Date Recorded Body height Body mass index (BMI) Body weight Oxygen saturation Oxygen saturation in Arterial blood by Pulse oximetry Heart rate Respiratory rate Body temperature Systolic blood pressure Diastolic blood pressure Systolic blood pressure Diastolic blood pressure Provider Name and Address Organization Details Last Updated DateTime 3 180.34 cm 38.1 kg/m2 345904. 72 g 98 % 98 % 68 /min 16 /min 98.6 [degF] 182 mm[Hg] 107 mm[Hg] 182 mm[Hg] 106 mm[Hg] YARITZA VAMSHI PA - [facility] 3 15:13:28 Social History Question Answer Notes LastModified by [employer] ion Details LastModified Time Tobacco Smoking Status Former Smoker YARITZA BONDS blaze [place] - [facility] 09/29/2022 14:55:02 What Is Your Level Of Alcohol Consumption? Occasional [email or web address] Information not available 09/29/2022 How Many Times Per Week Do You Consume Alcohol? 1-2 Times Per Week [email or web address] Information not available 09/29/2022 Do You Use Any Illicit Or Recreational Drugs? No [email or web address] Information not available 09/29/2022 Have You Recently Traveled Abroad? No [email or web address] Information not available 09/29/2022 Do You Or Have You Ever Used Any Other Forms Of Tobacco Or Nicotine? No [email or web address] Information not available 09/29/2022 Sex: Unknown Functional Status None recorded. Mental Status None recorded. Family History Nothing Reported. Medical History Condition Response Gout N Cancer, liver N Thyroid disorder N Hyperthyroidism N Rheumatoid arthritis N GI bleeding N Irritable bowel syndrome N Depression N COPD N Tinnitus, unspecified ear N Pneumonia N Cancer, uterus N Mental disorder, NOS N Headaches/Migraines N Insomia N Alzheimer's disease N Anxiety Disorder N Obesity N Arthritis N Cancer N Stroke N Alcohol abuse N Liver disease N Cancer, bladder N Allergy Food/Medication N Peripheral artery disease N Oxygen dependence N Fibromyalgia N Atrial fibrillation N Tinnitus, right ear N Kidney Disease N Deep vein thrombosis DVT leg N Migraine N Disorder of circulatory system N Anxiety N Cancer, brain N Disease of pancreas N Cancer, lung N Eating disorder, unspecified N Cancer, colon N Crohn's disease N Cancer, cervical N N Cancer, breast N Cancer, skin N Coagulation defect, unspecified N Cataract N Asthma N Congestive heart failure (CHF) N Substance Abuse N Vertigo N Coronary artery disease N Pulmonary Embolism N Cancer, pancreas N Tobacco use disorder N Disease of lung N Allergic rhinitis N Joint disorder, unspecified N Menopause N Drug dependence, unspecified N Back disorder N Hypothyroidism N Disorder kidney N Sickle Cell Anemia N Cancer, ovarian N Astorga's Palsy N Disorder of eye N Cancer, prostate N Allergy Seasonal N Drug abuse N Disorder of urinary system N Disorder of lymph system N Radiculopathy, site unspecified N Myoneural disorder, unspecified N Nervous system disorder N ADHD N High Cholesterol N Post-herpetic neuralgia N Aneurysm, cerebral N Tinnitus, left ear N Prostate hypertrophy, benign N Disorder of skin/subcutaneous N Osteoarthritis N Disorder of ear N Ovarian cysts N Parkinson's disease N Low back pain N Carpal tunnel syndrome N Disorder of muscle N Anemia N Kidney stone N Bipolar affective disorder N Leukemia, unspecified N Diabetes N Endocrine disorder N Disorder involving the immune mechanism N Seizure N Hyperlipidemia N Lymphoma N Emphysema, unspecified N Eczema N Diverticulitis N Dementia N Lupus N Seizure disorder N Reflux/GERD N Sleep Apnea N Cancer, bone N Disorder of thyroid N Cardiac arrhythmia, unspecified N Disorder of bone N Heart Disease N Liver Disorder N Disorder of brain N Hypertension N Aneurysm, aortic N Osteoporosis N Gastroesophageal reflux (GERD) N Disease of digestive system, unspecified N Gynecological HistoryNo gynecological history recorded. Obstetrics History GPAL:G 0 P 0 0 0 0 Past Encounters Encounter ID Performer Location Encounter Start Date Encounter Closed Date Diagnosis/Indication Diagnosis SNOMED-CT Code Diagnosis ICD10 Code Diagnosis Note [id number] [address] [address] [address] 02/18/2018 14:13:05 02/18/2018 14:51:23 [id number] KENISHA FRANZ MD [address] [address] [address] 09/29/2022 14:40:53 09/29/2022 15:51:12 Acute viral pharyngitis 964695759 J02.9 Sore throatClea r liquids for comfortFre sh Sindhu Root Tea-Cut up fresh sindhu root and boil it till fragrant. drink the liquid as a tea. Can add Honey to taste. Also For Sore Throat:Thr oat Comfort Tea(by [employer])Thro at Coat Tea( by [employer] ) Clear broth soup: Vegetable, Chicken or Beef as tolerated. Salt Water GarglesMix 1 teaspoonfu l of salt in a glass of warm water. Gargle and spit out the salt water mixture one mouthful at a time until the glass is empty. Repeat 4 times daily. Black Elderberry Syrup:1-2 tsp 2-3 times a day for 5 days as needed for coughing.S ambucol Black Elderberry Original Syrup (available at [employer] )Gayla Herbs Black Elderberry Syrup, 5.4-Ounce Bottle (available at [employer] or [employer]) Use a cool mist humidifier in the room that you sleep to add moisture to the air, which should soothe the airways and help loosen any mucus that may be present. may cain bermeo directed on package for the appropriat e age range. Health Concerns Section Related Observation LastModified by Organization Detai ls LastModified Time None Recorded Concern Status LastModified by Organization Details LastModified Time None Recorded Advance Directives Directive None Recorded Payers Encounter Date Sequence Insurance Name Policy Number Policy Merrill Covered Member ID Merrill Member ID Guarantor Name 02/18/2018 1 [facility] [id number] Chris Driver [id number] Chris Driver 09/29/2022 1 [facility] [id number] Chris Driver [id number] Chris Driver Notes Date Note Type Note Provider Name and Address Organization Details Recorded Time 09/29/2022 text/html This {{61#}} year old {{male* female}} patient presents with {{<1#}} day history of sore throat. The pain severity is a {{1 2 3 4 5* 6 7 8 9 10}}/10 and is described as {{sharp dull thr obbing burning s cratchy#}}. Voice is {{normal* hoarse muffled}}. Associated symptoms include: {{None fever Hea dache Abdomenal pain cough#}}. {{No* Red}} rash Aggravating factors include: {{None Swallowin g*}}. Relieving factors include: {{None OTC pain relievers* Suppo rtive care}}. Sick contacts: {{none* family c oworkers friends }} KENISHA FRANZ MD [address] [place], [place] [address]S[place], [id number], [place] - [facility] 09/29/2022 16:47:02 OBGyn Episode No OBEpisode recorded.
== END 2024-09-12 12:22 | disposition home or self-care (01) ==
LOC: HO.HGI 10:53
PROVIDERS: PCP Nurse Practitioner Family; Visit Provider Nurse Practitioner Family
DX: Z01.818 Encounter for other preprocedural examination (principal); Z12.11 Encounter for screening for malignant neoplasm of colon
CPT/HCPCS: S0285

== ENCOUNTER → 2024-09-12 10:52 | Outpatient (BNVA) | payer OTHER, SELFPAY | PROVIDERS: PCP Nurse Practitioner Family; Visit Provider Nurse Practitioner Family ==

== ENCOUNTER 2024-09-27 10:43 | Outpatient (AMB) | payer OTHER, SELFPAY ==
--- NOTE | 2024-09-27 10:44 | MHC.PC.OV ---
Vital Signs 09/27/24 10:51 09/27/24 11:34 Height 5 ft 10 in Weight 261 lb 6 oz BMI 37.5 BP 156/80 H 132/70 Blood Pressure Location Rt brachial Lt brachial Position Sitting Sitting Respiration 16 Pulse 59 Pulse Source Pulse Oximeter Temp 98.2 F Temp Source Oral Pulse Oximetry (%) 97 Oxygen Delivery Method Room Air Intake Visit Reasons: 3 mos HTN, anxiety Intake Note: patient here for 3 month follow up on HTN and anxiety Land Survey Technician Required: No Allergies cat dander [CATS] Adverse Reaction (Mild, Verified 09/27/24 11:28) RUNNY NOSE Shellfish Allergy (Mild, Uncoded 09/27/24 11:28) HIVES, SWELLING GRASS Adverse Reaction (Mild, Uncoded 09/27/24 11:28) RUNNY NOSE Medication List - Last Reconciled 09/27/24 by Asif Franco CNP amlodipine 10 mg PO DAILY 30 days B-complex with vitamin C 1 cap PO DAILY bisacodyl (Dulcolax (bisacodyl)) 20 mg (4 x 5 mg) PO ONCE 1 day cholecalciferol (vitamin D3) 25 mcg PO DAILY fluticasone propionate 50 mcg/actuation (Flonase Allergy Relief) 2 sprays intranasal DAILY hydroxyzine HCl 25 mg PO TID PRN lisinopril 40 mg PO DAILY 30 days polyethylene glycol 3350 (Miralax) 238 grams PO ONCE Tobacco use date assessed: 09/27/24 Dental Screening Dental Screen Date: 09/27/24 Did you have a dental visit in the last 12 months?: Yes Did you have a dental problem in the last 6 months where you did not have access to dental care?: No Was dental information given to patient?: Patient has dentist HPI HPI Comments History of Present Illness Details 63-year-old male presents for hypertension and anxiety follow-up. He admits to taking his medications as prescribed without adverse reactions. He has been making healthy dietary choices exercising routinely. He drinks mixed drinks 2 days weekly; he has not drank alcohol for the past 5 days. He reports controlled anxiety and depressive symptoms. He offers no complaints and denies acute symptoms at this time. [facility], [facility] Medical History Shingles Headache Arthritis Sinusitis Diverticulitis Surgical History History of colonoscopy Family History Paternal Grandfather Substance abuse Cancer Father Asthma Clotting disorder Mother Hypertension High cholesterol Clotting disorder Maternal Grandmother Cardiovascular disease Maternal Grandfather Clotting disorder Social History Household Members: Spouse Both parents involved: No Caregiver staying overnight: No Housing: House Are you a primary child care worker to a significant other at home: Yes Do you presently have visiting nurse or other home services: No 75 years or older and lives alone: No Alcohol intake: current Alcohol intake frequency: a few times a week Patient Tobacco Use Status: Former Tobacco user Years Smoked: 30 e-Cigarette/Vaping Use: Never Used Second Hand Smoke Exposure: No service: No Current occupational status: retired Cognitive needs: No Hearing needs: No Vision needs: Yes (wear glasses) Questionnaire PHQ-9 Over the last 2 weeks, how often have you been bothered by any of the following problems? 1. Little interest or pleasure in doing things: several days 2. Feeling down, depressed, or hopeless: several days 3. Trouble falling or staying asleep, or sleeping too much: several days 4. Feeling tired or having little energy: several days 5. Poor appetite or overeating: several days 6. Feeling bad about yourself - or that you are a failure or have let yourself or your family down: not at all 7. Trouble concentrating on things, such as reading the newspaper or watching television: not at all 8. Moving or speaking so slowly that other people could have noticed. Or the opposite - being so fidgety or restless that you have been moving around a lot more than usual: not at all 9. Thoughts that you would be better off or of hurting yourself in some way: not at all Total score: 5 Depression Screening Interpretation: Positive Depression Screening Done: Yes 30532 - PHQ-9 Billing: Yes Source: Developed by Drs. Kervin Morales, Prema Alvarado, Dom Perez and colleagues, with an educational maddy from [employer]. Thrive Questionnaire Date Thrive assessed: 09/20/24 I am a: Patient What is your living situation today?: I have a steady place to live Within the past 12 months, did the food you bought not last and you didn't have the money to get more?: Never true Within the past 12 months, did you worry whether your food would run out before you got money to buy more?: Never true Do you have trouble paying for medicines?: No Do you have trouble getting transportation to medical appointments?: No Do you have trouble paying your heating and electricity bill?: No Do you have trouble taking care of your child, family member or friend?: No Do you have trouble with day-to-day activities such as bathing, preparing meals, shopping, managing finances, etc.?: No Are you currently unemployed and looking for a job?: No Are you interested in more education?: No Please select the resources that you would like help with: None Currently or been in a relationship where the following occur: No concerns reported THRIVE Score: 0 AUDIT C Alcohol Use Questionnaire (AUDIT-C) 1. How often do you have a drink containing alcohol?: 2-3 times a week 2. How many drinks containing alcohol do you have on a typical day when you are drinking?: 3 or 4 3. How often do you have six or more drinks on one occasion?: Monthly Total Score: 6 Score Reviewed/Action Taken: Yes DARLENE-7 AMB Questionnaire DARLENE-7 Date DARLENE - 7 assessed: 09/27/24 Feeling nervous, anxious, or on edge: 0 = Not at all Not being able to stop or control worryin = Not at all Worrying too much about different things: 0 = Not at all Trouble relaxin = Not at all Being so restless that it is hard to sit still: 0 = Not at all Becoming easily annoyed or irritable: 0 = Not at all Feeling afraid as if something awful might happen: 0 = Not at all Total DARLENE-7 score (0-4 normal; 5-9 mild; 10-14 moderate; 15-21 severe): 0 Source: Developed by Drs. Kervin Morales, Prema Alvarado, Dom Perez and colleagues, with an educational maddy from [employer] DARLENE-7 Assessment Billing DARLENE-7 Assessment Tool: DARLENE-7 Assessment 96617 Review of Systems Const Details: Const Denies chills, Denies fatigue, Denies fever(s), Denies headache(s) and Denies weakness ENT Denies dizziness and Denies headache(s) Card Denies chest pain, Denies lightheadedness, Denies dyspnea and Denies other (Palpitations) Resp Denies cough, Denies dyspnea, Denies wheezing and Denies other ( shortness of breath) GI Denies abdominal pain, Denies melena, Denies hematochezia, Denies change in bowel habits, Denies dyspepsia and Denies nausea Denies hematuria and Denies dysuria Musc Denies abnormal gait, Denies myalgias, Denies arthralgias, Denies numbness and Denies tingling Skin/Breast Denies rash, Denies unusual bruising and Denies wounds Neuro Denies abnormal gait, Denies dizziness, Denies headache(s), Denies memory loss, Denies numbness, Denies Sensory deficit (Neuro), Denies tingling and Denies weakness Psych Denies anxiety, Denies depression, Denies memory loss Endo Denies cold intolerance, Denies fatigue, Denies heat intolerance, Denies polydipsia and Denies polyuria Aller/Immun Denies wheezing Physical exam (Primary Care) Vital Signs: Last Vital Signs Temp 98.2 F 09/27/24 10:51 Pulse 59 09/27/24 10:51 Resp 16 09/27/24 10:51 BP 156/80 H 09/27/24 10:51 Pulse Ox 97 09/27/24 10:51 Oxygen Delivery Method Room Air 09/27/24 10:51 BMI result Body Mass Index 37.5 Tobacco/Smoking Status: Tobacco use Status Tobacco use date assessed 09/27/24 09/27/24 10:56 Patient Tobacco Use Status Former Tobacco user 09/27/24 10:46 e-Cigarette/Vaping Use Never Used 09/27/24 10:46 PHQ-9: PHQ-9 Score PHQ-9: Total score 5 09/27/24 10:56 Depression Screening Interpretation: Positive Thrive Assessment: Date of Thrive Assessment Date Thrive assessed 09/20/24 09/27/24 10:46 Currently or been in a relationship where the following occur: No concerns reported Const Other: General: no acute distress and well developed Nutritional Appearance: well nourished Orientation/consciousness: patient oriented x3 HENMT Head: Yes normocephalic and Yes atraumatic Eyes General: appearance normal, both eyes and all related structures Pupils: Equal, round and reactive pupils present EOM: EOMs intact bilaterally Resp Effort & Inspection: normal respiratory effort Auscultation: clear to auscultation bilaterally Cardio Rate: regular rate Rhythm: regular rhythm Heart sounds: S1 normal heart sound present, S2 normal heart sound present, no gallops, no murmurs and no rubs GI Palpation (GI): No Abdominal aortic bruit present, Soft to palpation, nontender, No hepatosplenomegaly present and No Rebound tenderness present Auscultation: normal bowel sounds General: Yes no CVA tenderness Back/Spine/Pelvis Back: no CVA tenderness Cervical Spine: cervical ROM normal and No Cervical spine tenderness Thoracic/Lumbar Spine: thoraco-lumbar ROM normal, No pain with thoraco-lumbar ROM, No thoracic spinal tenderness and No lumbar spinal tenderness Extrem General: Yes normal to inspection, No edema and No calf tenderness Skin General: warm and dry. Normal skin color. Normal skin turgor Neuro General: patient oriented x3, gait normal and no focal neuro deficit Cranial nerves: Yes Equal, round and reactive pupils present Cognition (Neuro): normal cognition Gait exam (Neuro): Normal gait present Sensory Exam: No Sensory deficit (Neuro) Psych Appearance: grossly normal Affect: normal affect Attitude: cooperative Thought process: Normal thought process present Coding Level of Care Code Est Pt Level 3 (41607) Diagnoses Hypertension I10 Anxiety F41.9 Additional Codes DARLENE-7 Assessment Billing - DARLENE-7 Assessment Tool: DARLENE-7 Assessment 37094 ([id number]) PHQ-9 - 66051 - PHQ-9 Billing: Yes ([id number]) Assessment & Plan Assessment & Plan (1) Hypertension: Code(s): I10 - Essential (primary) hypertension Category: Medical Plan: Resting blood pressure is 132/70, within goal of less than 140/90. Continue current treatment regimen. Routine exercise and low-sodium diet encouraged. Follow-up in 3 months or return sooner with symptoms or concerns. Verbalized understanding and agreed with treatment plan. (2) Anxiety: Code(s): F41.9 - Anxiety disorder, unspecified Category: Medical Plan: Reports controlled anxiety symptoms. Continue current treatment regimen. Routine exercise encouraged. Follow-up in 3 months or sooner with symptoms or concerns. Verbalized understanding and agreed with the plan.
[2024-09-27 10:51] VITALS: BP 156/80; PULSE 59; RESP 16; TEMP 36.8; O2SAT 97; BMI 37.5
[2024-09-27 11:34] VITALS: BP 132/70
--- OUTSIDE RECORDS SUMMARY | 2024-09-27 12:57 | XMS_ITS | Data Portability ---
Author Organization [facility] Address [address] [place] [address] Assessment No assessment recorded. Plan of Treatment Reminders Order Date Submit Date Provider Last Modified By Organization Details Last Modified Time Details Appointments None recorded . Lab rapid strep group A, throat 023 09/30/19 [email or web address] 247 _[facility], [address] [place] [address], [phone], 15:29:26 Referral None recorded . Procedures None [...] t Unknown Analyte negati ve Not Available [facility] [address] [place] [address], [phone], 09/29/2022 14:55:40 09/30/1909/29/2022 rapid strep group A, throa t Unknown Analyte Normal = Negati ve Not Available [facility] [address] [place] [address], [phone], 09/29/2022 14:55:40 Result Notes None recorded. Medical Equipment None Reported. Allergies Allergen ID Allergen Name Allergen Category Reaction Reaction Severity Criticality Documentation Date Start Date Code Code System Note Provider Name and Address Organization Details Recorded Time 765330 cat dander environme nt Not available Not available Not available 09/29/2022 32936 JANY BONDS blaze, [place] - [facility] 3 14:53:49 357105 shellfish derived food,medi cation Not available Not available Not available 09/29/2022 26804 JANY thakur, [place] - [facility] 14:53:57 [...] Updated DateTime 3 180.34 cm 38.1 kg/m2 539164. 72 g 98 % 98 % 68 /min 16 /min 98.6 [degF] 182 mm[Hg] 107 mm[Hg] 182 mm[Hg] 106 mm[Hg] YARITZA VAMSHI PA - [facility] 3 15:13:28 Social History Question Answer Notes LastModified by [employer] Details LastModified Time Tobacco Smoking Status Former Smoker YARITZA BONDS blaze PA - [facility] 09/29/2022 14:55:02 What Is Your Level Of Alcohol Consumption? Occasional Information not available 09/29/2022 How Many Times Per Week Do You Consume Alcohol? 1-2 Times Per Week [email or web address] Information not available 09/29/2022 Do You Use Any Illicit Or Recreational Drugs? No [email or web address] Information not available 09/29/2022 Have You Recently Traveled Abroad? No [email or web address] Information not available 09/29/2022 Do You Or Have You Ever Used Any Other Forms Of Tobacco Or Nicotine? No [email or web address] Information not available 09/29/2022 Sex: Unknown Functional Status None recorded. Mental Status None recorded. Family History Nothing Reported. Medical History Condition Response Gout N Cancer, liver N Thyroid disorder N Hyperthyroidism N Rheumatoid arthritis N GI bleeding N Irritable bowel syndrome N COPD N Depression N Tinnitus, unspecified ear N Pneumonia N Cancer, uterus N Mental disorder, NOS N Headaches/Migraines N Insomia N Alzheimer's disease N Anxiety Disorder N Obesity N Arthritis N Cancer N Stroke N Alcohol abuse N Liver disease N Allergy Food/Medication N Cancer, bladder N Peripheral artery disease N Oxygen dependence [...] N Joint disorder, unspecified N Menopause N Back disorder N Drug dependence, unspecified N Hypothyroidism N Disorder kidney N Sickle Cell Anemia N Cancer, ovarian N Astorga's Palsy N Disorder of eye N Cancer, prostate N Allergy Seasonal N Disorder of lymph system N Disorder of urinary system N Drug abuse N Radiculopathy, site unspecified N Myoneural disorder, unspecified N Nervous system disorder N ADHD N High Cholesterol N Post-herpetic neuralgia N Aneurysm, cerebral N Tinnitus, left ear N Prostate hypertrophy, benign N Disorder of skin/subcutaneous N Osteoarthritis N Disorder of ear N Ovarian cysts N Parkinson's disease N Low back pain N Carpal tunnel syndrome N Anemia N Disorder of muscle N Kidney stone N Bipolar affective disorder N Leukemia, unspecified N Diabetes N Disorder involving the immune mechanism N Endocrine disorder N Seizure N Hyperlipidemia N Eczema N Emphysema, unspecified N Lymphoma N Dementia N Diverticulitis N Lupus N Seizure disorder N Reflux/GERD N Sleep Apnea N Cancer, bone N Cardiac arrhythmia, unspecified N Disorder of thyroid N Disorder of bone N Heart Disease N Disorder of brain N Liver Disorder N Aneurysm, aortic N Hypertension N Osteoporosis N Disease of digestive system, unspecified N Gastroesophageal reflux (GERD) N Gynecological HistoryNo gynecological history recorded. Obstetrics History GPAL:G 0 P 0 0 0 0 Past Encounters Encounter ID Performer Location Encounter Start Date Encounter Closed Date Diagnosis/Indication Diagnosis SNOMED-CT Code Diagnosis ICD10 Code Diagnosis Note [id number] [address] [address] [address] 02/18/2018 14:13:05 02/18/2018 14:51:23 [id number] KENISHA FRANZ [place] [address] [address] [address] 09/29/2022 14:40:53 09/29/2022 15:51:12 Acute viral pharyngitis 293385855 J02.9 Sore throatClea r liquids for comfortFre sh Sindhu Root Tea-Cut up fresh sindhu root and boil it till fragrant. drink the liquid as a tea. Can add Honey to taste. Also For Sore Throat:Thr oat Comfort Tea(by Yogi Brand)Thro at Coat Tea( by [employer] - [employer] ) Clear broth soup: Vegetable, Chicken or [...] ambucol Black Elderberry Original Syrup (available at [employer] )Gayla Herbs Black Elderberry Syrup, 5.4-Ounce Bottle (available at [employer] or [employer]) Use a cool mist humidifier in the [...] Merrill Member ID Guarantor Name 02/18/2018 1 [facility] [id number] Chris Driver [id number] 2 Chris Driver 09/29/2022 1 [facility] [id number] Chris Driver [id number] 2 Chris Driver Notes Date Note Type [...] contacts: {{none* family c oworkers friends }} KEINSHA FRANZ MD [address] [place], [place] [address], [address], [place] - [facility] 09/29/2022 16:47:02 OBGyn Episode No OBEpisode recorded.
== END 2024-09-27 11:35 | disposition home or self-care (01) ==
LOC: HO.HMCFM 10:43
PROVIDERS: PCP Nurse Practitioner Family; Visit Provider Nurse Practitioner Family
DX: I10 Essential (primary) hypertension (principal); F41.9 Anxiety disorder, unspecified

== ENCOUNTER → 2024-09-27 10:43 | Outpatient (BNVA) | payer OTHER, SELFPAY | PROVIDERS: PCP Nurse Practitioner Family; Visit Provider Nurse Practitioner Family | DX: I10 Essential (primary) hypertension (principal); F41.9 Anxiety disorder, unspecified | CPT/HCPCS: 96127 ==

== ENCOUNTER 2024-12-08 09:18 | Outpatient (AMB) | payer OTHER, SELFPAY ==
[2024-12-08 09:30] VITALS: BP 156/90; PULSE 66; O2SAT 96; BMI 37.7
--- NOTE | 2024-12-08 09:30 | MHC.OFFVIS ---
Vital Signs 12/08/24 09:30 Height 5 ft 10 in Weight 263 lb BMI 37.7 BP 156/90 H Blood Pressure Location Rt brachial Position Sitting Pulse 66 Pulse Source Pulse Oximeter Pulse Oximetry (%) 96 Oxygen Delivery Method Room Air Intake Visit Reasons: 6 mnts f/u appt Intake Note: Patient presents follow up for BHARATH. Called [facility] regarding compliance and they stated his machine stopped transmitting back in 2021. Mass [employer] Instructor Required: No Accompanied by: Self / Same As Patient Allergies cat dander (CATS) Adverse Reaction (Mild, Verified 12/08/24 09:31) RUNNY NOSE Shellfish Allergy (Mild, Uncoded 09/27/24 11:28) HIVES, SWELLING GRASS Adverse Reaction (Mild, Uncoded 09/27/24 11:28) RUNNY NOSE Medication List - Last Reconciled 12/08/24 by JULISSA Golden amlodipine 10 mg PO DAILY 30 days B-complex with vitamin C 1 cap PO DAILY bisacodyl (Dulcolax (bisacodyl)) 20 mg (4 x 5 mg) PO ONCE 1 day cholecalciferol (vitamin D3) 25 mcg PO DAILY fluticasone propionate 50 mcg/actuation (Flonase Allergy Relief) 2 sprays intranasal DAILY hydroxyzine HCl 25 mg PO TID PRN lisinopril 40 mg PO DAILY 30 days polyethylene glycol 3350 (Miralax) 238 grams PO ONCE HPI Comments Details: History of Present Illness The patient is a 64-year-old male presenting with a follow-up for obstructive sleep apnea management. The patient has been using a CPAP machine nightly, although it is due for replacement. He reports that sometimes he wakes up with the mask off and experiences sleep disturbances. The patient also reports experiencing narcolepsy-like symptoms, including the ability to enter REM sleep quickly during naps and episodes of daytime sleepiness. He recalls an incident where he was advised not to return to work due to narcolepsy concerns after a sleep study. He has not experienced sleep paralysis recently but did when he was younger. CPAP compliance review: Does patient have sufficient PAP supplies? Yes Does patient clean PAP supplies on a regular basis? Yes Does the patient use distilled water in their PAP machine water reservoir? Yes PAP compliance report results: Unable to access patient's PAP compliance data due to the age of patient's machine. The patient experiences daily headaches, which he considers normal, although realizes it is not. He has been informed that veterans have a higher incidence of headaches, and the [facility] provides resources for headache management. 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 - Service: [place] with potential exposure to allergens during service. Review of Systems - Neurological: Reports daytime sleepiness and quick onset of REM sleep during naps. Denies recent sleep paralysis. - General: Reports daily headaches. [facility] Medical History Shingles Headache Arthritis Sinusitis Diverticulitis Surgical History History of colonoscopy Family History Paternal Grandfather Substance abuse Cancer Father Asthma Clotting disorder Mother Hypertension High cholesterol Clotting disorder Maternal Grandmother Cardiovascular disease Maternal Grandfather Clotting disorder Social History Household Members: Spouse Both parents involved: No Caregiver staying overnight: No Housing: House Are you a primary transitional care manager to a significant other at home: Yes Do you presently have visiting nurse or other home services: No 75 years or older and lives alone: No Alcohol intake: current Alcohol intake frequency: a few times a week Patient Tobacco Use Status: Former Tobacco user Years Smoked: 30 e-Cigarette/Vaping Use: Never Used Second Hand Smoke Exposure: No service: No Current occupational status: retired Cognitive needs: No Hearing needs: No Vision needs: Yes (wear glasses) Physical Exam Vital Signs: Last Vital Signs Pulse 66 12/08/24 09:30 BP 156/90 H 12/08/24 09:30 Pulse Ox 96 12/08/24 09:30 Oxygen Delivery Method Room Air 12/08/24 09:30 BMI result Body Mass Index 37.7 Const General: no acute distress Orientation/consciousness: patient oriented x3 HEENT Other: Mallampati stage 4 Resp Effort & Inspection: normal respiratory effort and able to speak in complete sentences Neuro General: patient oriented x3 Psych Mental Status: mental status grossly normal Speech and movement: Clear speech present Attitude: cooperative Assessment & Plan Assessment & Plan (1) Sleep apnea: Code(s): G47.30 - Sleep apnea, unspecified Category: Medical Qualifiers: Sleep apnea type: unspecified type Qualified Code(s): G47.30 - Sleep apnea, unspecified (2) Hypersomnia: Code(s): G47.10 - Hypersomnia, unspecified Category: Medical (3) Abnormal REM sleep: Comment: Early sleep onset REM Code(s): G47.8 - Other sleep disorders Category: Medical (4) Sleep disturbance: Code(s): G47.9 - Sleep disorder, unspecified Category: Medical (5) Sleep paralysis: Code(s): G47.8 - Other sleep disorders Category: Medical Plan Discussion Notes I discussed with the patient the need for a new CPAP machine due to the current one being outdated and the importance of replacing it to ensure effective management of obstructive sleep apnea. We also talked about the upcoming sleep study to evaluate the patient's sleep patterns and determine if narcolepsy is present. I informed the patient about the [facility]'s resources for managing headaches and the potential for service connection for his symptoms. Plan - -Conduct a sleep study to assess for narcolepsy and evaluate sleep apnea management. - Upon review of sleep study results, arrange for a new CPAP machine to replace the outdated one. - Patient's current respiratory supply is [employer]. However, patient is [facility]. - Headache questionnaire provided to patient to complete prior to next visit. - Provide information on [facility] resources for headache management and discuss potential service connection for headaches. - Continue to use PAP nightly with a goal of greater than 4 hours nightly, as patient is experiencing good clinical effect from use. - Clean and change PAP supplies routinely, including filters, masks, tubing, and water reservoir. - Use distilled water in PAP water reservoir. Patient was informed and verbally consented to the use of an ambient scribe for clinic note documentation during this visit. Will follow-up upon review of above and patient to follow-up in clinic in 6 months or sooner prn.. Orders: Orders RT PSG in-lab sleep study Today G47.10 - Hypersomnia, unspecified, G47.30 - Sleep apnea, unspecified, G47.8 - Other sleep disorders Coding Level of Care Code Est Pt Level 3 (84553) Diagnoses Sleep apnea, unspecified type G47.30 Sleep apnea type: unspecified type Hypersomnia G47.10 Abnormal REM sleep G47.8 Sleep disturbance G47.9 Sleep paralysis G47.8
--- OUTSIDE RECORDS SUMMARY | 2024-12-08 10:12 | XMS_ITS | Data Portability ---
Author Organization [facility], [address] Address [address] [place] [address] Assessment No assessment recorded. Plan of Treatment Reminders Order Date Submit Date Provider Last Modified By Organization Details Last Modified Time Details Appointments None recorded . Lab rapid strep group A, throat 023 09/30/19 [email or web address] 247 [facility], [address] [place] [address], [phone], 15:29:26 Referral None recorded . Procedures None [...] t Unknown Analyte negati ve Not Available [facility] [address] [place] [address], [phone], 09/29/2022 14:55:40 09/30/1909/29/2022 rapid strep group A, throa t Unknown Analyte Normal = Negati ve Not Available [facility] [address] [place] [address], [phone], 09/29/2022 14:55:40 Result Notes None recorded. Medical Equipment None Reported. Allergies Allergen ID Allergen Name Allergen Category Reaction Reaction Severity Criticality Documentation Date Start Date Code Code System Note Provider Name and Address Organization Details Recorded Time 181491 cat dander environme nt Not available Not available Not available 09/29/2022 33320 JANY JORDANMICHELLE thakur PA - [facility] 3 14:53:49 025703 shellfish derived food,medi cation Not available Not available Not available 09/29/2022 39960 JANY BONDS blaze PA - [facility] 3 14:53:57 Medications Not known to be on any medication Vitals Date Recorded Body height Body mass index (BMI) Body weight Oxygen saturation Oxygen saturation in Arterial blood by Pulse oximetry Heart rate Respiratory rate Body temperature Systolic blood pressure Diastolic blood pressure Systolic blood pressure Diastolic blood pressure Provider Name and Address Organization Details Last Updated DateTime 3 180.34 cm 38.1 kg/m2 778559. 72 g 98 % 98 % 68 /min 16 /min 98.6 [degF] 182 mm[Hg] 107 mm[Hg] 182 mm[Hg] 106 mm[Hg] JEAN CLAUDEABRANJessica VAMSHI PA - [facility] 3 15:13:28 Social History Question Answer Notes LastModified by [employer] Details LastModified Time Tobacco Smoking Status Former Smoker YARITZA JORDANMICHELLE thakur PA - [facility] 09/29/2022 14:55:02 Have You Recently Traveled Abroad? No [email or web address] Information not available 09/29/2022 Sex: Unknown Functional Status Question Answer Note LastModified by [employer] Details LastModified Time How many times per week do you consume alcohol? 1-2 times per week [email or web address] Information not available 09/29/2022 Do you use any illicit or recreational drugs? No [email or web address] Information not available 09/29/2022 Do you or have you ever used any other forms of tobacco or nicotine? No [email or web address] Information not available 09/29/2022 What is your level of alcohol consumption? Occasional [email or web address] Information not available 09/29/2022 Mental Status None recorded. Family History Nothing [...] SNOMED-CT Code Diagnosis ICD10 Code Diagnosis Note [id number] [facility] [address] [address] 02/18/2018 14:13:05 02/18/2018 14:51:23 [id number] KENISHA FRANZ MD [address] [address] [place] [address] 09/29/2022 14:40:53 09/29/2022 15:51:12 Acute viral pharyngitis 801021313 J02.9 Sore throatClea r liquids for comfortFre sh Sindhu Root Tea-Cut up fresh sindhu root and boil it till fragrant. drink the liquid as a tea. Can add Honey to taste. Also For Sore Throat:Thr oat Comfort Tea(by Yogi Brand)Thro at Coat Tea( by [employer] ) Clear broth soup: Vegetable, Chicken or [...] ambucol Black Elderberry Original Syrup (available at [employer] )Gayla Herbs Black Elderberry Syrup, 5.4-Ounce Bottle (available at [employer] or [employer]) Use a cool mist humidifier in the room that you sleep to add moisture to the air, which should soothe the airways and help loosen any mucus that may be present. may takeibupro fenas directed on package for the appropriat e age range. Health Concerns Section Related Observation LastModified by Organization Detai ls LastModified Time None Recorded Concern Status LastModified by Organization Details LastModified Time None Recorded Advance Directives Directive None Recorded Payers Insurance Date Sequence Insurance Name Policy Number Policy Merrill Covered Member ID Merrill Member ID Guarantor Name 09/29/2022 1 [place] [id number] Chris Driver [id number] Chris Driver Notes Date Note Type Note Provider Name and Address Organization Details Recorded Time 09/29/2022 text/html This 61 year old male patient presents with <1 day history of sore throat. The pain severity is a 5/10 and is described as scratchy. Voice is normal. Associated symptoms include: cough. No rash Aggravating factors include: Swallowing. Relieving factors include: OTC pain relievers. Sick contacts: none KENISHA FRANZ MD [address], [place], [address], [place] - [facility] 09/29/2022 16:47:02 OBGyn Episode No OBEpisode recorded.
== END 2024-12-08 10:22 | disposition home or self-care (01) ==
LOC: HO.HSMS 09:19
PROVIDERS: PCP Nurse Practitioner Family; Visit Provider Nurse Practitioner Family
DX: G47.30 Sleep apnea, unspecified (principal); G47.10 Hypersomnia, unspecified; G47.8 Other sleep disorders; G47.9 Sleep disorder, unspecified
CPT/HCPCS: 99213

== ENCOUNTER 2025-01-02 11:15 | Outpatient (AMB) | payer OTHER, SELFPAY ==
--- NOTE | 2025-01-02 11:18 | A.OFFPC_ITS ---
Vital Signs 01/02/25 11:23 01/02/25 11:44 Height 5 ft 10 in Weight 262 lb 8 oz BMI 37.7 BP 138/74 130/80 Blood Pressure Location Rt brachial Lt brachial Position Sitting Sitting Respiration 16 Pulse 58 Pulse Source Pulse Oximeter Temp 98.3 F Temp Source Oral Pulse Oximetry (%) 98 Oxygen Delivery Method Room Air Intake Visit Reasons: HTN, anxiety Intake Note: patient here for follow up on HTN and anxiety Master Black Belt Required: No Allergies cat dander (CATS) Adverse Reaction (Mild, Verified 01/02/25 11:36) RUNNY NOSE Shellfish Allergy (Mild, Uncoded 01/02/25 11:36) HIVES, SWELLING GRASS Adverse Reaction (Mild, Uncoded 01/02/25 11:36) RUNNY NOSE Medication List - Last Reconciled 01/02/25 by Asif Franco CNP amlodipine 10 mg PO DAILY 30 days B-complex with vitamin C 1 cap PO DAILY bisacodyl (Dulcolax (bisacodyl)) 20 mg (4 x 5 mg) PO ONCE 1 day cholecalciferol (vitamin D3) 25 mcg PO DAILY fluticasone propionate 50 mcg/actuation (Flonase Allergy Relief) 2 sprays intranasal DAILY hydroxyzine HCl 25 mg PO TID PRN lisinopril 40 mg PO DAILY 30 days polyethylene glycol 3350 (Miralax) 238 grams PO ONCE Tobacco use date assessed: 01/02/25 Dental Screening Dental Screen Date: 01/02/25 Did you have a dental visit in the last 12 months?: Yes Did you have a dental problem in the last 6 months where you did not have access to dental care?: No Was dental information given to patient?: Patient has dentist HPI HPI Comments History of Present Illness Details 64-year-old male presents for hypertensi on and anxiety follow-up. He admits to taking his medications as prescribed without adverse reactions. He has been making healthy dietary choices exercising routinely. He significantly cut down on alcohol intake and has been drinking 2-3 mixed drinks weekly. He reports controlled anxiety and depressive symptoms. He offers no complaints and denies acute symptoms at this time. FORMERLY [facility] Medical History Shingles Headache Arthritis Sinusitis Diverticulitis Surgical History History of colonoscopy Family History Paternal Grandfather Substance abuse Cancer Father Asthma Clotting disorder Mother Hypertension High cholesterol Clotting disorder Maternal Grandmother Cardiovascular disease Maternal Grandfather Clotting disorder Social History Household Members: Spouse Both parents involved: No Caregiver staying overnight: No Housing: House Are you a primary personal caregiver to a significant other at home: Yes Do you presently have visiting nurse or other home services: No 75 years or older and lives alone: No Alcohol intake: current Alcohol intake frequency: a few times a week Patient Tobacco Use Status: Former Tobacco user Years Smoked: 30 e-Cigarette/Vaping Use: Never Used Second Hand Smoke Exposure: No service: No Current occupational status: retired Cognitive needs: No Hearing needs: No Vision needs: Yes (wear glasses) Questionnaire PHQ-9 Over the last 2 weeks, how often have you been bothered by any of the following problems? 1. Little interest or pleasure in doing things: not at all 2. Feeling down, depressed, or hopeless: not at all 3. Trouble falling or staying asleep, or sleeping too much: not at all 4. Feeling tired or having little energy: not at all 5. Poor appetite or overeating: not at all 6. Feeling bad about yourself - or that you are a failure or have let yourself or your family down: not at all 7. Trouble concentrating on things, such as reading the newspaper or watching television: not at all 8. Moving or speaking so slowly that other people could have noticed. Or the opposite - being so fidgety or restless that you have been moving around a lot more than usual: not at all 9. Thoughts that you would be better off or of hurting yourself in some way: not at all Total score: 0 Depression Screening Interpretation: Negative Depression Screening Done: Yes 66820 - PHQ-9 Billing: Yes Source: Developed by Drs. Kervin Morales, Prema Alvarado, Dom Perez and colleagues, with an educational maddy from [employer]. Thrive Questionnaire Date Thrive assessed: 04/08/25 I am a: Patient What is your living situation today?: I have a steady place to live Within the past 12 months, did the food you bought not last and you didn't have the money to get more?: Never true Within the past 12 months, did you worry whether your food would run out before you got money to buy more?: Never true Do you have trouble paying for medicines?: No Do you have trouble getting transportation to medical appointments?: No Do you have trouble paying your heating and electricity bill?: No Do you have trouble taking care of your child, family member or friend?: No Do you have trouble with day-to-day activities such as bathing, preparing meals, shopping, managing finances, etc.?: No Are you currently unemployed and looking for a job?: No Are you interested in more education?: No Please select the resources that you would like help with: None Currently or been in a relationship where the following occur: No concerns reported THRIVE Score: 0 DARLENE-7 AMB Questionnaire DARLENE-7 Date DARLENE - 7 assessed: 01/02/25 Feeling nervous, anxious, or on edge: 0 = Not at all Not being able to stop or control worryin = Not at all Worrying too much about different things: 0 = Not at all Trouble relaxin = Not at all Being so restless that it is hard to sit still: 0 = Not at all Becoming easily annoyed or irritable: 0 = Not at all Feeling afraid as if something awful might happen: 0 = Not at all Total DARLENE-7 score (0-4 normal; 5-9 mild; 10-14 moderate; 15-21 severe): 0 Source: Developed by Drs. Kervin Morales, Prema Alvarado, Dom Perez and colleagues, with an educational maddy from [employer]. DARLENE-7 Assessment Billing DARLENE-7 Assessment Tool: DARLENE-7 Assessment 08430 Review of Systems Const Details: Const Denies chills, Denies fatigue, Denies fever(s), Denies headache(s) and Denies weakness ENT Denies dizziness and Denies headache(s) Card Denies chest pain, Denies lightheadedness, Denies dyspnea and Denies other (Palpitations) Resp Denies cough, Denies dyspnea, Denies wheezing and Denies other ( shortness of breath) GI Denies abdominal pain, Denies melena, Denies hematochezia, Denies change in bowel habits, Denies dyspepsia and Denies nausea Denies hematuria and Denies dysuria Musc Denies abnormal gait, Denies myalgias, Denies arthralgias, Denies numbness and Denies tingling Skin/Breast Denies rash, Denies unusual bruising and Denies wounds Neuro Denies abnormal gait, Denies dizziness, Denies headache(s), Denies memory loss, Denies numbness, Denies Sensory deficit (Neuro), Denies tingling and Denies weakness Psych Denies anxiety, Denies depression, Denies memory loss Endo Denies cold intolerance, Denies fatigue, Denies heat intolerance, Denies polydipsia and Denies polyuria Aller/Immun Denies wheezing Physical exam (Primary Care) Vital Signs: Last Vital Signs Temp 98.3 F 01/02/25 11:23 Pulse 58 01/02/25 11:23 Resp 16 01/02/25 11:23 BP 138/74 01/02/25 11:23 Pulse Ox 98 01/02/25 11:23 Oxygen Delivery Method Room Air 01/02/25 11:23 BMI result Body Mass Index 37.7 Tobacco/Smoking Status: Tobacco use Status Tobacco use date assessed 01/02/25 01/02/25 11:28 Patient Tobacco Use Status Former Tobacco user 01/02/25 11:19 e-Cigarette/Vaping Use Never Used 01/02/25 11:19 PHQ-9: PHQ-9 Score PHQ-9: Total score 0 01/02/25 11:28 Depression Screening Interpretation: Negative Thrive Assessment: Date of Thrive Assessment Date Thrive assessed 09/20/24 01/02/25 11:19 Currently or been in a relationship where the following occur: No concerns reported Const Other: General: no acute distress and well developed Nutritional Appearance: well nourished Orientation/consciousness: patient oriented x3 HENMT Head: Yes normocephalic and Yes atraumatic Eyes General: appearance normal, both eyes and all related structures Pupils: Equal, round and reactive pupils present EOM: EOMs intact bilaterally Resp Effort & Inspection: normal respiratory effort Auscultation: clear to auscultation bilaterally Cardio Rate: regular rate Rhythm: regular rhythm Heart sounds: S1 normal heart sound present, S2 normal heart sound present, no gallops, no murmurs and no rubs GI Palpation (GI): No Abdominal aortic bruit present, Soft to palpation, nontender, No hepatosplenomegaly present and No Rebound tenderness present Auscultation: normal bowel sounds General: Yes no CVA tenderness Back/Spine/Pelvis Back: no CVA tenderness Cervical Spine: cervical ROM normal and No Cervical spine tenderness Thoracic/Lumbar Spine: thoraco-lumbar ROM normal, No pain with thoraco-lumbar ROM, No thoracic spinal tenderness and No lumbar spinal tenderness Extrem General: Yes normal to inspection, No edema and No calf tenderness Skin General: warm and dry. Normal skin color. Normal skin turgor Neuro General: patient oriented x3, gait normal and no focal neuro deficit Cranial nerves: Yes Equal, round and reactive pupils present Cognition (Neuro): normal cognition Gait exam (Neuro): Normal gait present Sensory Exam: No Sensory deficit (Neuro) Psych Appearance: grossly normal Affect: normal affect Attitude: cooperative Thought process: Normal thought process present Coding Level of Care Code Est Pt Level 3 (14532) Diagnoses Hypertension I10 Anxiety F41.9 Additional Codes DARLENE-7 Assessment Billing - DARLENE-7 Assessment Tool: DARLENE-7 Assessment 24877 ([id number]) PHQ-9 - 92206 - PHQ-9 Billing: Yes ([id number]) Assessment & Plan Assessment & Plan (1) Hypertension: Code(s): I10 - Essential (primary) hypertension Category: Medical Plan: Resting blood pressure is 130/80, within goal of less than 140/90. Continue current treatment regimen. Low-sodium diet encouraged. Follow-up in 3 months or sooner with symptoms or concerns. Verbalized understanding and agreed with the plan. (2) Anxiety: Code(s): F41.9 - Anxiety disorder, unspecified Category: Medical Plan: Reports controlled anxiety symptoms. PHQ-9 and DARLENE-7 scores are normal. Continue current treatment regimen. Routine exercise encouraged. Follow-up in 3 months or sooner with symptoms or concerns. Verbalized understanding and agreed with the plan.
[2025-01-02 11:23] VITALS: BP 138/74; PULSE 58; RESP 16; TEMP 36.8; O2SAT 98; BMI 37.7
[2025-01-02 11:44] VITALS: BP 130/80
--- OUTSIDE RECORDS SUMMARY | 2025-01-02 12:24 | XMS_ITS | Data Portability ---
Author Organization [facility], [address] Address [address] [place] [address] Assessment No assessment recorded. Plan of Treatment Reminders Order Date Submit Date Provider Last Modified By Organization Details Last Modified Time Details Appointments None recorded . Lab rapid strep group A, throat 023 09/30/19 [email or web address] 247 [facility], [address] [place] [address], [phone], 15:29:26 Referral None recorded . Procedures None [...] t Unknown Analyte negati ve Not Available [facility] [address] [place] [address], [phone], 09/29/2022 14:55:40 09/30/1909/29/2022 rapid strep group A, throa t Unknown Analyte Normal = Negati ve Not Available [facility] [address] [place] [address], [phone], 09/29/2022 14:55:40 Result Notes None recorded. Medical Equipment None Reported. Allergies Allergen ID Allergen Name Allergen Category Reaction Reaction Severity Criticality Documentation Date Start Date Code Code System Note Provider Name and Address Organization Details Recorded Time 198151 cat dander environme nt Not available Not available Not available 09/29/2022 17321 JANY JORDANMICHELLE thakur, [place] - [facility] 3 14:53:49 277911 shellfish derived food,medi cation Not available Not available Not available 09/29/2022 00200 JANY BONDS blaze, [place] - [facility] 14:53:57 Medications Not known to be on any medication Vitals Date Recorded Body height Body mass index (BMI) Body weight Oxygen saturation Oxygen saturation in Arterial blood by Pulse oximetry Heart rate Respiratory rate Body temperature Systolic And Diastolic Systolic And Diastolic Provider Name and Address Organization Details Last Updated DateTime 3 180.34 cm 38.1 kg/m2 061526. 72 g 98 % 98 % 68 /min 16 /min 98.6 [degF] 182/107 mm[Hg] 182/106 mm[Hg] YARITZA VAMSHI PA - [facility] 3 15:13:28 Social History Question Answer Notes LastModified by [employer] Details LastModified Time Tobacco Smoking Status Former Smoker YARITZA JORDANMICHELLE thakur, [place] - [facility] 09/29/2022 14:55:02 Have You Recently Traveled Abroad? No [email or web address] Information not available 09/29/2022 Sex: Unknown Functional Status Question Answer Note LastModified by [employer] Details LastModified Time How many times per week do you consume alcohol? 1-2 times per week [email or web address] Information not available 09/29/2022 Do you use any illicit or recreational drugs? No [email or web address] Information not available 09/29/2022 Do you or have you ever used any other forms of tobacco or nicotine? No [email or web address] Information not available 09/29/2022 What is your level of alcohol consumption? Occasional [email or web address] Information not available 09/29/2022 Mental Status None [...] SNOMED-CT Code Diagnosis ICD10 Code Diagnosis Note [id number] [facility] [address] [place] [address] 02/18/2018 14:13:05 02/18/2018 14:51:23 [id number] KENISHA FRANZ MD [address] [place] [address] 09/29/2022 14:40:53 09/29/2022 15:51:12 Acute viral pharyngitis [id number] J02.9 Sore throatClea r liquids for comfortFre sh Sindhu Root Tea-Cut up fresh sindhu root and boil it till fragrant. drink the liquid as a tea. Can add Honey to taste. Also For Sore Throat:Thr oat Comfort Tea(by [employer])Thro at Coat Tea( by [employer] ) Clear broth soup: Vegetable, Chicken or [...] ambucol Black Elderberry Original Syrup (available at [employer] )Gayla Her[employer] Black Elderberry Syrup, 5.4-Ounce Bottle (available at [employer] or [employer]) Use a cool mist humidifier in the [...] Member ID Guarantor Name 09/29/2022 1 FLORENTIN [id number] Chris Driver [id number] Chris Driver Notes Date Note Type [...] contacts: none KENISHA FRANZ MD [address] [place], [phone], [place] - [facility] 09/29/2022 16:47:02 OBGyn Episode No OBEpisode recorded.
== END 2025-01-02 11:44 | disposition home or self-care (01) ==
LOC: HO.HMCFM 11:16
PROVIDERS: PCP Nurse Practitioner Family; Visit Provider Nurse Practitioner Family
DX: I10 Essential (primary) hypertension (principal); F41.9 Anxiety disorder, unspecified

== ENCOUNTER → 2025-01-02 11:15 | Outpatient (BNVA) | payer OTHER, SELFPAY | PROVIDERS: PCP Nurse Practitioner Family; Visit Provider Nurse Practitioner Family | DX: I10 Essential (primary) hypertension (principal); F41.9 Anxiety disorder, unspecified | CPT/HCPCS: 96127 ==

== ENCOUNTER 2025-01-16 07:34 | Day surgery (SDC) | payer OTHER, SELFPAY ==
--- OUTSIDE RECORDS SUMMARY | 2024-12-22 11:02 | XMS_ITS | Data Portability ---
Author Organization [facility], [address] Address [address] [place] [address] Assessment No assessment recorded. Plan of Treatment Reminders Order Date Submit Date Provider Last Modified By Organization Details Last Modified Time Details Appointments None recorded . Lab rapid strep group A, throat 023 09/30/19 [email or web address] 247 [facility], [address] [place] [address], [phone], 15:29:26 Referral None recorded . Procedures None [...] t Unknown Analyte negati ve Not Available [facility] [address] [place] [address], [phone], 09/29/2022 14:55:40 09/30/1909/29/2022 rapid strep group A, throa t Unknown Analyte Normal = Negati ve Not Available [facility] [address] [place] [address], [phone], 09/29/2022 14:55:40 Result Notes None recorded. Medical Equipment None Reported. Allergies Allergen ID Allergen Name Allergen Category Reaction Reaction Severity Criticality Documentation Date Start Date Code Code System Note Provider Name and Address Organization Details Recorded Time 296050 cat dander environme nt Not available Not available Not available 09/29/2022 89531 JANY JORDANMICHELLE thakur, PA - [facility] 3 14:53:49 811145 shellfish derived food,medi cation Not available Not available Not available 09/29/2022 05381 JANY BONDS blaze, PA - [facility] 14:53:57 Medications Not known to be on any medication Vitals Date Recorded Body height Body mass index (BMI) Body weight Oxygen saturation Oxygen saturation in Arterial blood by Pulse oximetry Heart rate Respiratory rate Body temperature Systolic And Diastolic Systolic And Diastolic Provider Name and Address Organization Details Last Updated DateTime 3 180.34 cm 38.1 kg/m2 857864. 72 g 98 % 98 % 68 /min 16 /min 98.6 [degF] 182/107 mm[Hg] 182/106 mm[Hg] YARITZA VAMSHI PA - [facility] 3 15:13:28 Social History Question Answer Notes LastModified by [employer] Details LastModified Time Tobacco Smoking Status Former Smoker YARITZA JORDANMICHELLE thakur, PA - [facility] 09/29/2022 14:55:02 Have You Recently Traveled Abroad? No [email or web address] Information not available 09/29/2022 Sex: Unknown Functional Status Question Answer Note LastModified by [employer] Details LastModified Time How many times per week do you consume alcohol? 1-2 times per week [email or web address] Information not available 09/29/2022 Do you use any illicit or recreational drugs? No [email or web address] Information not available 09/29/2022 Do you or have you ever used any other forms of tobacco or nicotine? No [email or web address] Information not available 09/29/2022 What is your level of alcohol consumption? Occasional [email or web address] Information not available 09/29/2022 Mental Status None [...] SNOMED-CT Code Diagnosis ICD10 Code Diagnosis Note [id number] [facility] [address] [place] [address] 02/18/2018 14:13:05 02/18/2018 14:51:23 [id number] KENISHA FRANZ MD [address] [facility] [address] [place] [address] 09/29/2022 14:40:53 09/29/2022 15:51:12 Acute viral pharyngitis [id number] J02.9 Sore throatClea r liquids for comfortFre sh Sindhu Root Tea-Cut up fresh sindhu root and boil it till fragrant. drink the liquid as a tea. Can add Honey to taste. Also For Sore Throat:Thr oat Comfort Tea(by Yogi Brand)Thro at Coat Tea( by [employer] ) Clear broth soup: Vegetable, Chicken or [...] ambucol Black Elderberry Original Syrup (available at [employer] )Gayla Herbs Black Elderberry Syrup, 5.4-Ounce Bottle (available at [employer] or [employer]) Use a cool mist humidifier in the [...] Member ID Guarantor Name 09/29/2022 1 [place]OR[place] [id number] Chris Driver [id number] Chris Driver Notes Date Note Type [...] Sick contacts: none KENISHA FRANZ MD [address] [place], [address], [place] - [facility] 09/29/2022 16:47:02 OBGyn Episode No OBEpisode recorded.
[2025-01-12 14:00] VITALS: BMI 37.6
--- NOTE | 2025-01-13 09:23 | HO.ANESPROP2 ---
Documented by User: Beverley Parikh NP 01/13/25 09:24 HPI - Anesthesia Eval Consult details Narrative: 64yo M for Colonoscopy PMFSH Active Problems Active Problems: All Active Problems Abnormal REM sleep (Acute) Sleep paralysis (Acute) Hypersomnia (Acute) Alcohol use disorder (Acute) Anxiety (Acute) Hypercalcemia (Acute) Elevated fasting glucose (Acute) Obesity (BMI 30-39.9) (Acute) Anxiety and depression (Acute) Sleep disturbance (Acute) Colon cancer screening (Acute) Sleep apnea (Acute) Vaccine counseling (Acute) Hypertension (Acute) Laboratory tests ordered as part of a complete physical exam (CPE) (Acute) Normal physical examination, routine (Acute) Past Medical History Medical History HTN (hypertension) Sleep apnea Anxiety and depression Alcohol use disorder Arthritis Diverticulitis Family History Family History Paternal Grandfather Substance abuse Cancer Father Asthma Clotting disorder Mother Hypertension High cholesterol Clotting disorder Maternal Grandmother Cardiovascular disease Maternal Grandfather Clotting disorder Surgical History Surgical History History of colonoscopy Social History Social History Household Members: Spouse Housing: House Are you a primary assisted living care manager to a significant other at home: No Do you presently have visiting nurse or other home services: No Alcohol intake: current Alcohol intake frequency: a few times a week Patient Tobacco Use Status: Former Tobacco user Years Smoked: 30 e-Cigarette/Vaping Use: Never Used Second Hand Smoke Exposure: No Use of substances other than those prescribed or required for medical reasons: No Have you been hit, kicked, punched, or otherwise hurt by someone within the past year? If so, by whom?: No Are you DNR?: No Advance Directives: No Advance Directives Information Provided: Yes Advance Directives on File: No Poor oral hygiene: No service: No Current occupational status: retired Cognitive needs: No Hearing needs: No Vision needs: Yes (wear glasses) Meds Allergies Allergy/AdvReac Type Severity Reaction Status Date / Time cat dander (CATS) AdvReac Mild RUNNY NOSE Verified 01/02/25 11:36 Shellfish Allergy Mild HIVES, Uncoded 01/02/25 11:36 SWELLING GRASS AdvReac Mild RUNNY NOSE Uncoded 01/02/25 11:36 Home Medications ?Medication ?Instructions ?Recorded ?Confirmed ?Last Taken ?Type B-complex with vitamin C 1 cap PO DAILY 09/12/24 01/02/25 Unknown History cholecalciferol (vitamin D3) 25 25 mcg PO DAILY 09/12/24 01/02/25 Unknown History mcg (1,000 unit) capsule fluticasone propionate 50 2 spray intranasal DAILY 09/27/24 01/02/25 Unknown History mcg/actuation nasal spray,suspension (Flonase Allergy Relief) Exam Height,Weight and Vital Signs: Height 5 ft 10 in Weight 118.841 kg Assessment and Plan Assessment Anesthesia Assessment: Chart Reviewed Documented by User: Tisha Madrid MD 01/16/25 08:48 [facility] Past Medical History Medical History HTN (hypertension) Sleep apnea Anxiety and depression Alcohol use disorder Arthritis Diverticulitis Family History Family History Paternal Grandfather Substance abuse Cancer Father Asthma Clotting disorder Mother Hypertension High cholesterol Clotting disorder Maternal Grandmother Cardiovascular disease Maternal Grandfather Clotting disorder Surgical History Surgical History History of colonoscopy History of Problems with Anesthesia: No Social History Social History Household Members: Spouse Housing: House Are you a primary assisted living care manager to a significant other at home: No Do you presently have visiting nurse or other home services: No Alcohol intake: current Alcohol intake frequency: a few times a week Patient Tobacco Use Status: Former Tobacco user Years Smoked: 30 e-Cigarette/Vaping Use: Never Used Second Hand Smoke Exposure: No Use of substances other than those prescribed or required for medical reasons: No Have you been hit, kicked, punched, or otherwise hurt by someone within the past year? If so, by whom?: No Are you DNR?: No Advance Directives: No Advance Directives Information Provided: Yes Advance Directives on File: No Poor oral hygiene: No service: No Current occupational status: retired Cognitive needs: No Hearing needs: No Vision needs: Yes (wear glasses) Meds Allergies Allergy/AdvReac Type Severity Reaction Status Date / Time cat dander (CATS) AdvReac Mild RUNNY NOSE Verified 01/02/25 11:36 Shellfish Allergy Mild HIVES, Uncoded 01/02/25 11:36 SWELLING GRASS AdvReac Mild RUNNY NOSE Uncoded 01/02/25 11:36 Home Medications ?Medication ?Instructions ?Recorded ?Confirmed ?Last Taken ?Type B-complex with vitamin C 1 cap PO DAILY 09/12/24 01/02/25 Unknown History cholecalciferol (vitamin D3) 25 25 mcg PO DAILY 09/12/24 01/02/25 Unknown History mcg (1,000 unit) capsule fluticasone propionate 50 2 spray intranasal DAILY 09/27/24 01/02/25 Unknown History mcg/actuation nasal spray,suspension (Flonase Allergy Relief) Exam Airway Mallampati Class: III TM Dist: >3cm Neck ROM: Full Loose/Missing/Broken Teeth: No Heart: RRR Lungs: CTA Assessment and Plan Assessment Anesthesia Assessment: Anesthesia Plan Discussed Final Anesthetic Review History of Problems with Anesthesia: No NPO: Yes ASA Class: III Final Preanesthetic Review: Meds/Allgs Chart Reviewed, Consent Obtained/Reviewed and Anes Risks/Benef Reviewed Patient Risk: Intermediate Procedure Risk: Low Anesthetic Plan Anesthetic Plan: MAC: Disposition: Standard PACU
--- NOTE | 2025-01-16 07:18 | MHC.SHP ---
Pre-Procedural Eval Section A - 24 Hr Update-Section A only Date of Service: 01/16/25 The patient is an INPATIENT: No The patient has been examined within 24 hours of the surgical procedure. The History & Physical has been completed within 30 days and I have reviewed it.: No Section B - Complete if H&P > 30 days Chief Complaint: screening Relevant Family History (Specify if Yes): No Relevant Social History: Tobacco Use (Former smoker) Present Medications: see Short Stay Collaborative assessment Medical History: Significant History (Shingles Headache Arthritis Sinusitis Diverticulitis) History of Previous Operations: Relevant previous surgery/procedure and date(s) (History of colonoscopy) Allergies: Allergies Allergy/AdvReac Type Severity Reaction Status Date / Time cat dander (CATS) AdvReac Mild RUNNY NOSE Verified 01/02/25 11:36 Shellfish Allergy Mild HIVES, Uncoded 01/02/25 11:36 SWELLING GRASS AdvReac Mild RUNNY NOSE Uncoded 01/02/25 11:36 Review of Systems Sugical H&P ROS: Negative: Constitution, Cardiovascular, Respiratory and Gastrointestinal Exam Surgical H&P Exam: Normal: Heart, Normal: Lungs, Normal: Extremities and Normal: Abdomen Plan Diagnosis/Plan: Unchanged I have reviewed the history and physical and performed a pertinent physical examination on my patient. No changes have occurred unless specified. Time Spent With Patient Time: Total time managing care of this patient today ____ minutes.
[2025-01-16 08:05] VITALS: BMI 36.7
[2025-01-16 08:11] VITALS: BP 129/75; PULSE 57; RESP 16; TEMP 36.4; O2SAT 98
[2025-01-16] MEDS: Lactated Ringers 1,000 ML 100 ML IVCONT (08:16)
--- NOTE | 2025-01-16 10:35 | HO.OPN-COLON ---
Colonoscopy Operative Note Operative Note Date of Service: 01/16/25 Narrative: COLONOSCOPY TILL CECUM WITH BIOPSIES, SNARE POLYPECTOMY, SUBMUCOSAL INJECTION AND HEMOCLIP PLACEMENT Pre-op diagnosis: Colon cancer screening (2nd colon). Post-op diagnosis:? Colon polyps, Diverticulosis, hemorrhoids Endoscopist:? Brando Biswas MD Anesthesia:?MAC Consent: Indications for the procedure and potential complications of bleeding, perforation, reaction to medications and missed diagnosis were discussed with the patient and informed consent was obtained. Instrument: Olympus CF H 190 L variable stiffness adult colonoscope Monitoring: Vital signs and clinical assessment, intermittent blood pressure monitoring, continuous EKG monitoring, Pulse oximetry and Carbon Dioxide monitoring were done throughout the procedure. Please see anesthesia flowsheet. Colon withdrawl time was 30 minutes. Procedure: The patient was placed in the left lateral decubitis position and pre-procedure medications were administered. After a digital rectal examination of the ano-rectum, the video colonoscope was inserted into the rectum and advanced through the colon to the cecum. The colonoscope was slowly withdrawn in a retrograde panoramic fashion and the colon mucosa was carefully examined including a retroflexed view of the rectum. Findings and interventions are described below. Procedure Difficulty: without difficulty Findings: Terminal Ileum: Not evaluated Cecum: Normal Ascending Colon: Normal Transverse Colon: A 10 mm sessile polyp at 70 cms - removed with a cold snare. Residual polyp removed with a cold biopsy. Descending Colon: Moderate diverticulosis Sigmoid Colon: A 1.5 to 2 cms sessile polyp at 50 cms - removed piecemeal with a stiff hot snare. Polypectomy site was closed with 1 hemoclip and marked with Toya ink. Moderate diverticulosis Rectum: Normal Ano-rectum: Moderate internal hemorrhoids Colon preparation: Good after copious irrigation. Converse Bowel Preparation Scale Right colon; 2 Transverse colon: 2 Left colon; 2 (0 = Unprepared colon segment with mucosa not seen due to solid stool that cannot be cleared. 1 = Portion of mucosa of the colon segment seen, but other areas of the colon segment not well seen due to staining, residual stool and/or opaque liquid. 2 = Minor amount of residual staining, small fragments of stool and/or opaque liquid, but mucosa of colon segment seen well. 3 = Entire mucosa of colon segment seen well with no residual staining, small fragments of stool or opaque liquid) Impression and Post Procedure Diagnosis: Colonoscopy Findings: Two medium sized polyps were removed Moderate diverticulosis seen in the left colon Moderate hemorrhoids on retroflexed exam. Plan: I will send a letter with biopsy results. Repeat Colonoscopy in 6 to 12 months if polyps are adenomatous (to check polypectomy site in the sigmoid colon) and 10 year if polyps are hyperplastic. Above findings were reviewed with the patient and relevant handouts were given and the discharge area.
[2025-01-16 10:37] VITALS: BP 119/66; PULSE 58; RESP 18; TEMP 36.9; O2SAT 100
[2025-01-16 10:52] VITALS: BP 131/81; PULSE 54; RESP 18; TEMP 36.6; O2SAT 100
== END 2025-01-16 11:15 | disposition home or self-care (01) ==
PROVIDERS: PCP Nurse Practitioner Family; Visit Provider Internal Medicine Gastroenterology
PROC: 0DJD8ZZ Inspection of Lower Intestinal Tract, Via Natural or Artificial Opening Endoscopic (ICD-10-PCS; CPT 45378; principal; 2025-01-16 09:20)
DX: Z12.11 Encounter for screening for malignant neoplasm of colon (principal); D12.5 Benign neoplasm of sigmoid colon; K57.30 Diverticulosis of large intestine without perforation or abscess without bleeding; K64.8 Other hemorrhoids; I10 Essential (primary) hypertension; G47.30 Sleep apnea, unspecified; Z99.89 Dependence on other enabling machines and devices; Z87.891 Personal history of nicotine dependence; Z79.899 Other long term (current) drug therapy
CPT/HCPCS: 45381; 45385; 45380; 88305; J2003; J2704

== ENCOUNTER → 2025-01-16 07:34 | Outpatient (BNV) | payer OTHER, SELFPAY | PROVIDERS: PCP Nurse Practitioner Family; Visit Provider Internal Medicine Gastroenterology | DX: Z12.11 Encounter for screening for malignant neoplasm of colon (principal); K63.5 Polyp of colon; K57.90 Diverticulosis of intestine, part unspecified, without perforation or abscess without bleeding; K64.8 Other hemorrhoids | CPT/HCPCS: 45385 ==

== ENCOUNTER 2025-04-18 10:30 | Outpatient (AMB) | payer OTHER, SELFPAY ==
--- NOTE | 2025-04-18 10:36 | A.OFFPC_ITS ---
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 Allergies cat dander (CATS) Adverse Reaction (Mild, Verified 04/18/25 11:06) RUNNY NOSE Shellfish Allergy (Mild, Uncoded 04/18/25 11:06) HIVES, SWELLING GRASS Adverse Reaction (Mild, Uncoded 04/18/25 11:06) RUNNY NOSE Medication List - Last Reconciled 04/18/25 by Asif Franco CNP amlodipine 10 mg PO DAILY 30 days B-complex with vitamin C 1 cap PO DAILY cholecalciferol (vitamin D3) 25 mcg PO DAILY fluticasone propionate 50 mcg/actuation (Flonase Allergy Relief) 2 sprays intranasal DAILY hydroxyzine HCl 25 mg PO TID PRN lisinopril 40 mg PO DAILY 30 days Tobacco use date assessed: 04/18/25 Dental Screening Dental Screen Date: 04/18/25 Did you have a dental visit in the last 12 months?: Yes Did you have a dental problem in the last 6 months where you did not have access to dental care?: No Was dental information given to patient?: Patient has dentist HPI HPI Comments History of Present Illness Details 64-year-old male presents for hypertensi on and anxiety follow-up. He admits to taking his medications as prescribed without adverse reactions. He has been making healthy dietary choices exercising routinely. He significantly cut down on alcohol intake and has been drinking 2-3 mixed drinks weekly. He reports controlled anxiety and depressive symptoms. Reports right shoulder pain with moving the right arm above his head or behind his back. Symptoms ongoing for a few months. No fall, injury, or trauma. He takes aleve and applies warm compresses with minimal relief. 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 [facility] Medical History HTN (hypertension) Sleep apnea Anxiety and depression Alcohol use disorder Arthritis Diverticulitis Surgical History History of colonoscopy Family History Paternal Grandfather Substance abuse Cancer Father Asthma Clotting disorder Mother Hypertension High cholesterol Clotting disorder Maternal Grandmother Cardiovascular disease Maternal Grandfather Clotting disorder Social History Household Members: Spouse Both parents involved: No Caregiver staying overnight: No Housing: House Are you a primary progressive care unit registered nurse to a significant other at home: No Do you presently have visiting nurse or other home services: No 75 years or older and lives alone: No Alcohol intake: current Alcohol intake frequency: a few times a week Patient Tobacco Use Status: Former Tobacco user Years Smoked: 30 e-Cigarette/Vaping Use: Never Used Second Hand Smoke Exposure: No service: No Current occupational status: retired Current occupational exposures/hazards: No Cognitive needs: No Hearing needs: No Vision needs: Yes (wear glasses) Questionnaire PHQ-9 Over the last 2 weeks, how often have you been bothered by any of the following problems? 1. Little interest or pleasure in doing things: not at all 2. Feeling down, depressed, or hopeless: not at all 3. Trouble falling or staying asleep, or sleeping too much: not at all 4. Feeling tired or having little energy: not at all 5. Poor appetite or overeating: not at all 6. Feeling bad about yourself - or that you are a failure or have let yourself or your family down: not at all 7. Trouble concentrating on things, such as reading the newspaper or watching television: not at all 8. Moving or speaking so slowly that other people could have noticed. Or the opposite - being so fidgety or restless that you have been moving around a lot more than usual: not at all 9. Thoughts that you would be better off or of hurting yourself in some way: not at all Total score: 0 Depression Screening Interpretation: Negative Depression Screening Done: Yes 80463 - PHQ-9 Billing: Yes Source: Developed by Drs. Kervin Morales, Prema Alvarado, Dom Perez and colleagues, with an educational maddy from [employer]. Thrive Questionnaire Date Thrive assessed: 09/20/24 I am a: Patient What is your living situation today?: I have a steady place to live Within the past 12 months, did the food you bought not last and you didn't have the money to get more?: Never true Within the past 12 months, did you worry whether your food would run out before you got money to buy more?: Never true Do you have trouble paying for medicines?: No Do you have trouble getting transportation to medical appointments?: No Do you have trouble paying your heating and electricity bill?: No Do you have trouble taking care of your child, family member or friend?: No Do you have trouble with day-to-day activities such as bathing, preparing meals, shopping, managing finances, etc.?: No Are you currently unemployed and looking for a job?: No Are you interested in more education?: No Please select the resources that you would like help with: None Currently or been in a relationship where the following occur: No concerns reported THRIVE Score: 0 DARLENE-7 AMB Questionnaire DARLENE-7 Date DARLENE - 7 assessed: 04/18/25 Feeling nervous, anxious, or on edge: 0 = Not at all Not being able to stop or control worryin = Not at all Worrying too much about different things: 0 = Not at all Trouble relaxin = Not at all Being so restless that it is hard to sit still: 0 = Not at all Becoming easily annoyed or irritable: 0 = Not at all Feeling afraid as if something awful might happen: 0 = Not at all Total DARLENE-7 score (0-4 normal; 5-9 mild; 10-14 moderate; 15-21 severe): 0 Source: Developed by Drs. Kervin Morales, Dom Pelayo and colleagues, with an educational maddy from [employer]. DARLENE-7 Assessment Billing DARLENE-7 Assessment Tool: DARLENE-7 Assessment 90754 Review of Systems Const Details: Const Denies chills, Denies fatigue, Denies fever(s), Denies headache(s) and Denies weakness ENT Denies dizziness and Denies headache(s) Card Denies chest pain, Denies lightheadedness, Denies dyspnea and Denies other (Palpitations) Resp Denies cough, Denies dyspnea, Denies wheezing and Denies other ( shortness of breath) GI Denies abdominal pain, Denies melena, Denies hematochezia, Denies change in bowel habits, Denies dyspepsia and Denies nausea Denies hematuria and Denies dysuria Musc Reports as per HPI Skin/Breast Denies rash, Denies unusual bruising and Denies wounds Neuro Denies abnormal gait, Denies dizziness, Denies headache(s), Denies memory loss, Denies numbness, Denies Sensory deficit (Neuro), Denies tingling/numbness and Denies weakness Psych Denies anxiety, Denies depression, Denies memory loss Endo Denies cold intolerance, Denies fatigue, Denies heat intolerance, Denies polydi psia and Denies polyuria Aller/Immun Denies wheezing Physical exam (Primary Care) Vital Signs: Last Vital Signs Temp 97.8 F 04/18/25 10:47 Pulse 59 04/18/25 10:47 Resp 16 04/18/25 10:47 BP 154/84 H 04/18/25 10:47 Pulse Ox 98 04/18/25 10:47 Oxygen Delivery Method Room Air 04/18/25 10:47 BMI result Body Mass Index 38.1 Tobacco/Smoking Status: Tobacco use Status Tobacco use date assessed 04/18/25 04/18/25 10:51 Patient Tobacco Use Status Former Tobacco user 04/18/25 10:37 e-Cigarette/Vaping Use Never Used 04/18/25 10:37 PHQ-9: PHQ-9 Score PHQ-9: Total score 0 04/18/25 11:03 Depression Screening Interpretation: Negative Thrive Assessment: Date of Thrive Assessment Date Thrive assessed 09/20/24 04/18/25 10:37 Currently or been in a relationship where the following occur: No concerns reported Const Other: General: no acute distress and well developed Nutritional Appearance: well nourished Orientation/consciousness: patient oriented x3 HENMT Head: Yes normocephalic and Yes atraumatic Eyes General: appearance normal, both eyes and all related structures Pupils: Equal, round and reactive pupils present EOM: EOMs intact bilaterally Resp Effort & Inspection: normal respiratory effort Auscultation: clear to auscultation bilaterally Cardio Rate: regular rate Rhythm: regular rhythm Heart sounds: S1 normal heart sound present, S2 normal heart sound present, no gallops, no murmurs and no rubs GI Palpation (GI): No Abdominal aortic bruit present, Soft to palpation, nontender, No hepatosplenomegaly present and No Rebound tenderness present Auscultation: normal bowel sounds General: Yes no CVA tenderness Musc ROM of the right shoulder is slightly limited, no overt injury or trauma Skin General: warm and dry. Normal skin color. Normal skin turgor Neuro General: patient oriented x3, gait normal and no focal neuro deficit Cranial nerves: Yes Equal, round and reactive pupils present Cognition (Neuro): normal cognition Gait exam (Neuro): Normal gait present Sensory Exam: No Sensory deficit (Neuro) Psych Appearance: grossly normal Affect: normal affect Attitude: cooperative Thought process: Normal thought process present Coding Level of Care Code Est Pt Level 4 (02839) Diagnoses Hypertension I10 Anxiety and depression F41.9; F32.A Laboratory tests ordered as part of a complete physical exam (CPE) Z00.00 Right shoulder pain M25.511 Additional Codes DARLENE-7 Assessment Billing - DARLENE-7 Assessment Tool: DARLENE-7 Assessment 07294 ([id number]) PHQ-9 - 33146 - PHQ-9 Billing: Yes ([id number]) Assessment & Plan Assessment & Plan (1) Hypertension: Code(s): I10 - Essential (primary) hypertension Category: Medical Plan: Resting blood pressure is 130/80, within goal of less than 140/90. Continue current treatment regimen. Low-sodium diet encouraged. Perform lab work and follow-up within 1 month for an extended physical exam and labs review. Return sooner with symptoms or concerns. Verbalized understanding and agreed with the treatment plan. (2) Anxiety and depression: Code(s): F41.9 - Anxiety disorder, unspecified; F32.A - Depression, unspecified Category: Medical Plan: Reports controlled anxiety and depressive symptoms. PHQ-9 and DARLENE-7 scores are normal. Continue current treatment regimen. Follow-up as needed. Verbalized understanding and agreed with the plan. (3) Laboratory tests ordered as part of a complete physical exam (CPE): Code(s): Z00.00 - Encounter for general adult medical examination without abnormal findings Category: Medical Plan: Fasting labs ordered as part of a complete physical exam. Advised to fast for at least 10 hours before getting labs drawn. May drink water Verbalized understanding and agreed with treatment plan. (4) Right shoulder pain: Code(s): M25.511 - Pain in right shoulder Category: Medical Plan: Reports right shoulder pain with moving the right arm above his head or behind his back. Symptoms ongoing for a few months. No fall, injury, or trauma. He takes aleve and applies warm compresses with minimal relief. 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 ROM of the right shoulder is slightly limited, no overt injury or trauma. May take Aleve twice daily as needed. Warm/cool compresses encouraged. X-ray ordered. Follow-up with worsening or new symptoms. May refer to physical therapy. Verbalized understanding and agreed with the plan. Orders: Orders Complete Blood Count Auto Diff Today Z00.00 - Encounter for general adult medical examination without abnormal findings Microalbumin, Random (w Creat) Today Z00.00 - Encounter for general adult medical examination without abnormal findings TSH reflex Free T4 Today Z00.00 - Encounter for general adult medical examination without abnormal findings UA CC w/rflx Micro + Cult Today Z00.00 - Encounter for general adult medical examination without abnormal findings Vitamin D 25-OH Total Today Z00.00 - Encounter for general adult medical examination without abnormal findings XR shoulder RT min 2V Today M25.511 - Pain in right shoulder Comprehensive Braman. Panel Fast Today Z00.00 - Encounter for general adult medical examination without abnormal findings Lipid Panel Today Z00.00 - Encounter for general adult medical examination without abnormal findings
[2025-04-18 10:47] VITALS: BP 154/84; PULSE 59; RESP 16; TEMP 36.6; O2SAT 98; BMI 38.1
[2025-04-18 11:20] VITALS: BP 130/80
== END 2025-04-18 11:16 | disposition home or self-care (01) ==
LOC: HO.HMCFM 10:30
PROVIDERS: PCP Nurse Practitioner Family; Visit Provider Nurse Practitioner Family
DX: I10 Essential (primary) hypertension (principal); F41.9 Anxiety disorder, unspecified; F32.A Depression, unspecified; Z00.00 Encounter for general adult medical examination without abnormal findings; M25.511 Pain in right shoulder

== ENCOUNTER → 2025-04-18 10:30 | Outpatient (BNVA) | payer OTHER, SELFPAY | PROVIDERS: PCP Nurse Practitioner Family; Visit Provider Nurse Practitioner Family | DX: Z00.00 Encounter for general adult medical examination without abnormal findings (principal); I10 Essential (primary) hypertension; F41.9 Anxiety disorder, unspecified; M25.511 Pain in right shoulder; F32.A Depression, unspecified | CPT/HCPCS: 96127 ==

== ENCOUNTER 2025-05-24 13:31 | Outpatient (AMB) | payer OTHER, SELFPAY ==
--- NOTE | 2025-05-24 13:58 | A.OFFPC_ITS ---
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 Required: No Accompanied by: Self / Same As Patient Allergies cat dander (CATS) Adverse Reaction (Mild, Verified 05/24/25 15:40) RUNNY NOSE Shellfish Allergy (Mild, Uncoded 05/24/25 15:40) HIVES, SWELLING GRASS Adverse Reaction (Mild, Uncoded 05/24/25 15:40) RUNNY NOSE Medication List - Last Reconciled 05/24/25 by Nadya Tsai PA-C amlodipine 10 mg PO DAILY 30 days B-complex with vitamin C 1 cap PO DAILY cholecalciferol (vitamin D3) 25 mcg PO DAILY fluticasone propionate 50 mcg/actuation (Flonase Allergy Relief) 2 sprays intranasal DAILY ketotifen fumarate 0.025%(0.035%) (Alaway) 1 drp ophthalmic (eye) BID lisinopril 40 mg PO DAILY 30 days naproxen sodium (Aleve) 220 mg PO BID PRN Tobacco use date assessed: 05/24/25 Dental Screening Dental Screen Date: 05/24/25 Did you have a dental visit in the last 12 months?: Yes Did you have a dental problem in the last 6 months where you did not have access to dental care?: No Was dental information given to patient?: Patient has dentist HPI HPI Comments History of Present Illness Details History of Present Illness The patient is a 64 year old male presenting for an annual physical exam, evaluation of right shoulder pain, and a need for a new CPAP machine prescription. Regarding his right shoulder, he reports feeling a pop while golfing over the summer, which resulted in a large black and blue bruise across his biceps. He has since experienced pain with lifting his arm above his head and when pushing or pulling anything. He has not had a prior x-ray for this issue. For his obstructive sleep apnea, the patient uses a CPAP nightly, but his machine is old and indicating it is about to fail. He was previously told he needed a new prescription, which led to a referral to a sleep study doctor and a scheduled sleep study, but the study was ultimately denied and canceled. He has an upcoming appointment with a sleep neurologist on May 29. Review of his labs from April of last year showed a fasting glucose of 105 and a hemoglobin A1c of 5.5, placing him in the prediabetic range. His cholesterol panel showed a total cholesterol of 171, LDL of 107, triglycerides of 82, and HDL of 48. His CBC, chemistry panel, PSA, and thyroid were all normal. His urinalysis showed a trace of leukocytes but was otherwise negative. The patient is a former smoker, having smoked for about 30 years and quit approximately 11 years ago. He has a history of colonic polyps found on a prior colonoscopy and is scheduled for a follow-up on July 10. He reports hearing loss and is in the process of getting hearing aids through the [place]. He has no history of falls or hospitalizations in the past year. Social History - Tobacco Use: Former smoker, quit about 11 years ago after smoking for approximately 30 years. - Alcohol Use: Reports drinking alcohol; he drinks vodka instead of beer and had seven drinks the previous night but reports not drinking on the other six nights of the week. - Diet: Currently following a keto diet and has avoided pasta. - Living Situation: Lives with his . - Functional Status: Independent with ac tivities of daily living, including managing bills and laundry. 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 [facility] Medical History (Updated 05/24/25 @ 15:42 by Nadya Tsai PA-C) Screening for lung cancer Pre-diabetes Annual physical exam Leg swelling Heart murmur History of smoking 30 or more pack years Rotator cuff tear HTN (hypertension) Sleep apnea Anxiety and depression Alcohol use disorder Arthritis Diverticulitis Surgical History History of colonoscopy (~01/16/25) Family History Paternal Grandfather Substance abuse Cancer Father Asthma Clotting disorder Mother Hypertension High cholesterol Clotting disorder Maternal Grandmother Cardiovascular disease Maternal Grandfather Clotting disorder Social History Household Members: Spouse Both parents involved: No Caregiver staying overnight: No Housing: House Are you a primary field care advocate to a significant other at home: No Do you presently have visiting nurse or other home services: No 75 years or older and lives alone: No Alcohol intake: current Alcohol intake frequency: a few times a week Patient Tobacco Use Status: Former Tobacco user service: Yes Current occupational status: retired Cognitive needs: No Hearing needs: No Vision needs: Yes (wear glasses) Questionnaire PHQ-9 Over the last 2 weeks, how often have you been bothered by any of the following problems? 1. Little interest or pleasure in doing things: not at all 2. Feeling down, depressed, or hopeless: not at all 3. Trouble falling or staying asleep, or sleeping too much: not at all 4. Feeling tired or having little energy: not at all 5. Poor appetite or overeating: not at all 6. Feeling bad about yourself - or that you are a failure or have let yourself or your family down: not at all 7. Trouble concentrating on things, such as reading the newspaper or watching television: not at all 8. Moving or speaking so slowly that other people could have noticed. Or the opposite - being so fidgety or restless that you have been moving around a lot more than usual: not at all 9. Thoughts that you would be better off or of hurting yourself in some way: not at all Total score: 0 Depression Screening Interpretation: Negative Depression Screening Done: Yes 25496 - PHQ-9 Billing: Yes Source: Developed by Drs. Kervin Morales, Prema Alvarado, Dom Perez and colleagues, with an educational maddy from [employer]. Thrive Questionnaire Date Thrive assessed: 09/20/24 I am a: Patient What is your living situation today?: I have a steady place to live Within the past 12 months, did the food you bought not last and you didn't have the money to get more?: Never true Within the past 12 months, did you worry whether your food would run out before you got money to buy more?: Never true Do you have trouble paying for medicines?: No Do you have trouble getting transportation to medical appointments?: No Do you have trouble paying your heating and electricity bill?: No Do you have trouble taking care of your child, family member or friend?: No Do you have trouble with day-to-day activities such as bathing, preparing meals, shopping, managing finances, etc.?: No Are you currently unemployed and looking for a job?: No Are you interested in more education?: No Please select the resources that you would like help with: None Currently or been in a relationship where the following occur: No concerns reported THRIVE Score: 0 AUDIT C Alcohol Use Questionnaire (AUDIT-C) 1. How often do you have a drink containing alcohol?: 2-3 times a week 2. How many drinks containing alcohol do you have on a typical day when you are drinking?: 3 or 4 3. How often do you have six or more drinks on one occasion?: Monthly Total Score: 6 Score Reviewed/Action Taken: Yes DARLENE-7 AMB Questionnaire DARLENE-7 Date DARLENE - 7 assessed: 04/18/25 Feeling nervous, anxious, or on edge: 0 = Not at all Not being able to stop or control worryin = Not at all Worrying too much about different things: 0 = Not at all Trouble relaxin = Not at all Being so restless that it is hard to sit still: 0 = Not at all Becoming easily annoyed or irritable: 0 = Not at all Feeling afraid as if something awful might happen: 0 = Not at all Total DARLENE-7 score (0-4 normal; 5-9 mild; 10-14 moderate; 15-21 severe): 0 Source: Developed by Drs. Kervin Morales, Prema Alvarado, Dom Perez and colleagues, with an educational maddy from [employer]. DARLENE-7 Assessment Billing DARLENE-7 Assessment Tool: DARLENE-7 Assessment 39527 Review of Systems Narrative Review of Systems - Musculoskeletal: Reports right shoulder pain upon lifting the arm overhead, pushing, or pulling. - HEENT: Reports hearing loss; denies trouble seeing. - Cardiovascular: Denies chest pain or shortness of breath when lying flat or climbing stairs. Reports leg swelling that is worse as the day progresses. - Neurological: Reports using a CPAP nightly. - Constitutional: Denies recent falls. Const All systems reviewed & are unremarkable except as noted in HPI and below Physical exam (Primary Care) Vital Signs: Last Vital Signs Temp 97.4 F 05/24/25 14:08 Pulse 62 05/24/25 14:08 Resp 12 05/24/25 14:08 BP 140/74 H 05/24/25 14:08 Pulse Ox 94 05/24/25 14:08 Oxygen Delivery Method Room Air 05/24/25 14:08 Care Plan Goal for BP management: <140/90 at Goal BMI result Body Mass Index 39.2 BMI Assessment/Plan discussion: High BMI High, discussed plan: lifestyle, weight reduction, dietary, physical activity, alcohol moderation and other Tobacco/Smoking Status: Tobacco use Status Tobacco use date assessed 05/24/25 05/24/25 13:59 Patient Tobacco Use Status Former Tobacco user 05/24/25 14:15 e-Cigarette/Vaping Use 05/24/25 13:59 PHQ-9: PHQ-9 Score PHQ-9: Total score 0 05/24/25 14:31 Depression Screening Interpretation: Negative Thrive Assessment: Date of Thrive Assessment Date Thrive assessed 09/20/24 05/24/25 13:59 Currently or been in a relationship where the following occur: No concerns reported Narrative Physical Exam Appearance: Alert. Oriented X3. No acute distress. Head: Normal external exam. Normocephalic. Atraumatic. Eyes: Pupils are equal, round, and reactive to light. Extraocular movements intact. Conjunctiva and sclera normal. Eyelids normal. Ears: External auditory canal normal. Tympanic membranes normal. Throat: Pharynx normal. Uvula midline. Moist mucous membranes. Neck: Normal inspection. Neck supple. Full range of motion. No adenopathy. Thyroid Normal. No meningeal signs. No neck mass noted. Cardiovascular: Normal heart rate and rhythm. Heart sound normal. No murmurs noted. Pulses normal throughout. Slight murmur noted; ultrasound of the heart ordered due to leg swelling. Respiratory: No respiratory distress. Painless inspiration. Breath sounds normal. No wheezes/rales/rhonchi noted. Chest nontender. No accessory muscle usage noted or decreased air movement noted. Abdomen: Soft and nontender. Bowel sounds normal in all 4 quadrants. No distention noted. No organomegaly noted. No visible injury noted. Back: No costovertebral angle tenderness. Full range of motion noted. Skin: Skin warm and dry. Normal skin color. Normal skin turgor. No rashes/lesions/lacerations noted. Extremities: Slight lower extremity edema noted. Extremities exhibit normal range of motion. Right shoulder exhibits pain and limited range of motion; possible rotator cuff tear. Otherwise all other extremities exhibit normal range of motion nontender. Neuro: Oriented X 3. No motor deficit. No sensory deficit. Reflexes normal. Office Procedures Flu Questionnaire Does the patient have a severe egg allergy?: No Does the patient have severe life threatening allergies?: No Does the patient have a fever or illness today?: No Has the patient ever had Guillain-Independence Syndrome?: No Has the patient ever had any past reaction to a flu shot?: No Results AMB Hemoglobin A1c AMB Hemoglobin A1c 5.7 % Last Edit by ANTWON Vila on 05/24/25 14:33 Immunizations Fluarix [id number] (PF) 45 mcg (15 mcg x 3)/0.5 mL IM syringe Performing Provider: Nadya Tsai PA-C [facility] Documented (not given) by: ANTWON Vila on 05/24/25 14:16 Reason Not Given: Patient Refused Results Reviewed Results Reviewed: Laboratory Last Values Hgb A1c (Clinic) 5.7 % (4.0-6.0) 05/24/25 14:31 Results - Labs from April 2024: CBC normal, CMP normal, fasting glucose 105, HgbA1c 5.5, total cholesterol 171 mg/dL, LDL 107 mg/dL, triglycerides 82 mg/dL, HDL 48 mg/dL, PSA normal, thyroid normal, urine with trace leukocytes. - In-office test: HgbA1c is 5.7. Coding Level of Care Code New Pt Prev Care 40-64y(05859) Add On Preventative Visit Only Diagnoses Annual physical exam Z00.00 Right shoulder pain M25.511 Rotator cuff tear M75.100 Sleep apnea, unspecified type G47.30 Sleep apnea type: unspecified type Pre-diabetes R73.03 Hypertension I10 Screening for lung cancer Z12.2 Leg swelling M79.89 Additional Codes DARLENE-7 Assessment Billing - DARLENE-7 Assessment Tool: DARLENE-7 Assessment 75694 ([id number]) PHQ-9 - 11553 - PHQ-9 Billing: Yes ([id number]) Time Spent (min) 70 Assessment & Plan Assessment & Plan (1) Annual physical exam: Code(s): Z00.00 - Encounter for general adult medical examination without abnormal findings Category: Medical Plan: A comprehensive set of labs will be ordered for the patient's annual physical, including a CBC, CMP, vitamin B12, PSA, magnesium, folate, inflammatory markers, vitamin D, and a cholesterol panel. A urinalysis will also be performed. A follow-up visit is scheduled in three months to review the results of all tests and referrals. (2) Right shoulder pain: Code(s): M25.511 - Pain in right shoulder Category: Medical Plan: The patient reports a pop in his right shoulder while golfing, followed by bruising and ongoing pain with lifting, pushing, and pulling, suggestive of a rotator cuff tear. A right shoulder X-ray will be ordered to begin the workup, with a plan to order an MRI if pain persists and the X-ray is unrevealing. Referrals will be placed for physical therapy and an orthopedic consultation for further evaluation, potential injections, or surgical consideration. (3) Rotator cuff tear: Code(s): M75.100 - Unspecified rotator cuff tear or rupture of unspecified shoulder, not specified as traumatic Category: Medical Plan: To address the need for a new CPAP machine, a referral will be placed for pulmonology and a home sleep study will be ordered. This is in response to his current machine failing and previous difficulties in obtaining a new one due to a denied sleep study. (4) Sleep apnea: Code(s): G47.30 - Sleep apnea, unspecified Category: Medical Qualifiers: Sleep apnea type: unspecified type Qualified Code(s): G47.30 - Sleep apnea, unspecified Plan: To address the need for a new CPAP machine, a referral will be placed for pulmonology and a home sleep study will be ordered. This is in response to his current machine failing and previous difficulties in obtaining a new one due to a denied sleep study. (5) Pre-diabetes: Code(s): R73.03 - Prediabetes Category: Medical Plan: The patient's in-office A1c was 5.7, an increase from 5.5 last year, confirming his prediabetic status. The patient will be provided with informational materials on how to decrease sugar intake. (6) Hypertension: Code(s): I10 - Essential (primary) hypertension Category: Medical Plan: The patient's initial blood pressure was elevated at 140/74 mmHg, but improved to 133/78 mmHg on repeat measurement. He is advised to monitor his blood pressure at home and improve his diet and exercise, with the possibility of adjusting his medication if it remains consistently elevated. (7) Screening for lung cancer: Code(s): Z12.2 - Encounter for screening for malignant neoplasm of respiratory organs Category: Medical Plan: Given his history of smoking for 30 years and quitting 11 years ago, the patient is a candidate for lung cancer screening. A referral will be made to the lung cancer screening department for a low-contrast CT scan of the lungs. (8) Leg swelling: Code(s): M79.89 - Other specified soft tissue disorders Category: Medical Plan: The patient presents with lower leg swelling, which, in conjunction with a newly noted slight heart murmur and history of high blood pressure, raised suspicion for a cardiac etiology. To further evaluate, an EKG, a chest x-ray, a pro-BNP lab test, and an ultrasound of the heart will be ordered to check for fluid retention and structural abnormalities. A referral to cardiology will be considered depending on the results. Plan Plan Patient was informed and verbally consented to the use of an ambient scribe for clinic note documentation during this visit. 1. Annual Health Maintenance A comprehensive set of labs will be ordered for the patient's annual physical, including a CBC, CMP, vitamin B12, PSA, magnesium, folate, inflammatory markers, vitamin D, and a cholesterol panel. A urinalysis will also be performed. A follow-up visit is scheduled in three months to review the results of all tests and referrals. 2. Right Shoulder Pain The patient reports a pop in his right shoulder while golfing, followed by bruising and ongoing pain with lifting, pushing, and pulling, suggestive of a rotator cuff tear. A right shoulder X-ray will be ordered to begin the workup, with a plan to order an MRI if pain persists and the X-ray is unrevealing. Referrals will be placed for physical therapy and an orthopedic consultation for further evaluation, potential injections, or surgical consideration. 3. Obstructive Sleep Apnea To address the need for a new CPAP machine, a referral will be placed for pulmonology and a home sleep study will be ordered. This is in response to his current machine failing and previous difficulties in obtaining a new one due to a denied sleep study. 4. Prediabetes The patient's in-office A1c was 5.7, an increase from 5.5 last year, confirming his prediabetic status. The patient will be provided with informational materials on how to decrease sugar intake. 5. Hypertension The patient's initial blood pressure was elevated at 140/74 mmHg, but improved to 133/78 mmHg on repeat measurement. He is advised to monitor his blood pressure at home and improve his diet and exercise, with the possibility of adjusting his medication if it remains consistently elevated. 6. Screening For Malignant Neoplasm Of Lung Given his history of smoking for 30 years and quitting 11 years ago, the patient is a candidate for lung cancer screening. A referral will be made to the lung cancer screening department for a low-contrast CT scan of the lungs. 7. Lower Extremity Edema The patient presents with lower leg swelling, which, in conjunction with a newly noted slight heart murmur and history of high blood pressure, raised suspicion for a cardiac etiology. To further evaluate, an EKG, a chest x-ray, a pro-BNP lab test, and an ultrasound of the heart will be ordered to check for fluid retention and structural abnormalities. A referral to cardiology will be considered depending on the results. Discussion Notes I informed the patient that his lab work from last year showed he is in a prediabetic state with a slightly elevated LDL cholesterol. I explained that his A1c has increased slightly from 5.5 to 5.7, and provided him with information on decreasing sugar intake. Regarding his shoulder pain, I explained that his symptoms are suggestive of a rotator cuff tear and outlined the diagnostic process, starting with an X-ray, then potentially an MRI, and concurrent referrals to physical therapy and orthopedics. I discussed that orthopedics may offer injections or surgery if needed. For his sleep apnea, I acknowledged his difficulties with obtaining a new CPAP machine and stated I would order a new home sleep study and a referral to pulmon ology. I informed him that due to his smoking history, he is a candidate for lung cancer screening and that I would place a referral for a low-contrast CT scan. I noted his blood pressure was borderline high and advised him to monitor it at home, emphasizing that diet and exercise are the preferred methods for improvement, but that we may need to adjust his medications if it remains elevated. After observing his leg swelling and hearing a slight heart murmur, I explained that these could be related to his heart and high blood pressure. I discussed ordering an ultrasound of his heart, an EKG, a chest x-ray, and a pro-BNP lab test, explaining that a cardiology referral would be made if the results were significant. I reviewed all ordered labs and imaging, instructing him to go to the hospital fasting for the bloodwork, chest x-ray, and EKG. I clarified that the cardiac ultrasound would be scheduled after a call from the facility. I assured him I would call with any significant lab results before his three-month follow-up appointment. Orders: Orders Influenza [id number] Immunization Today Z23 - Encounter for immunization RT home sleep study Today E66.9 - Obesity, unspecified, G47.10 - Hypersomnia, unspecified, G47.30 - Sleep apnea, unspecified, G47.8 - Other sleep disorders, G47.9 - Sleep disorder, unspecified C Reactive Protein Today Z00.00 - Encounter for general adult medical examination without abnormal findings Complete Blood Count Auto Diff Today Z00.00 - Encounter for general adult medical examination without abnormal findings Magnesium Today Z00.00 - Encounter for general adult medical examination without abnormal findings Microalbumin, Random (w Creat) Today E11.9 - Type 2 diabetes mellitus without complications Vitamin B12 and Folate Today Z00.00 - Encounter for general adult medical examination without abnormal findings Vitamin D 25-OH Total Today Z00.00 - Encounter for general adult medical examination without abnormal findings PSA,Total (Free>4and<10) Today Z00.00 - Encounter for general adult medical examination without abnormal findings XR shoulder RT min 2V Today M25.511 - Pain in right shoulder PT Evaluation and Treatment Today M25.511 - Pain in right shoulder, M75.100 - Unspecified rotator cuff tear or rupture of unspecified shoulder, not specified as traumatic Comprehensive [place]. Panel Fast Today Z00.00 - Encounter for general adult medical examination without abnormal findings Erythrocyte Sedimentation Rate Today Z00.00 - Encounter for general adult medical examination without abnormal findings TSH reflex Free T4 Today Z00.00 - Encounter for general adult medical examination without abnormal findings UA CC w/rflx Micro + Cult Today Z00.00 - Encounter for general adult medical examination without abnormal findings Lipid Panel Today Z00.00 - Encounter for general adult medical examination without abnormal findings AMB Hemoglobin A1c Today R73.01 - Impaired fasting glucose CA echo transthoracic complete Today I10 - Essential (primary) hypertension, R01.1 - Cardiac murmur, unspecified NT Pro B Type Natriuretic Pept Today I10 - Essential (primary) hypertension, M79.89 - Other specified soft tissue disorders, R01.1 - Cardiac murmur, unspecified XR chest 2V Today I10 - Essential (primary) hypertension, M79.89 - Other specified soft tissue disorders, R01.1 - Cardiac murmur, unspecified ECG 12 lead EKG Today I10 - Essential (primary) hypertension, M79.89 - Other specified soft tissue disorders, R01.1 - Cardiac murmur, unspecified Referrals Lung Cancer Screening Referral Z87.891 - Personal history of nicotine dependence Orthopedics Referral M25.511 - Pain in right shoulder, M75.100 - Unspecified rotator cuff tear or rupture of unspecified shoulder, not specified as traumatic Pulmonology Referral G47.10 - Hypersomnia, unspecified, G47.30 - Sleep apnea, unspecified, G47.8 - Other sleep disorders, G47.9 - Sleep disorder, unspecified Patient Instructions: Patient Instructions - Continue taking current medications as prescribed, including amlodipine, lisinopril, B complex, vitamin D3, Flonase, [place]away[place] eye drops, and Aleve. - Go to the hospital or lab facility for fasting blood work, a urine test, a chest X-ray, and an EKG. Do not eat or drink for 10-12 hours before the blood tests. - You will receive a call to schedule an ultrasound of your heart. - The office will refer you to orthopedics, physical therapy, pulmonology, and the lung cancer screening program. You will be contacted to schedule these appointments. - Monitor your blood pressure at home and focus on diet and exercise to help low er it. - You have diet information to help lower your bad cholesterol and manage your blood sugar. - Schedule a follow-up appointment in three months to review all your results. - The provider will call you before your follow-up appointment if any of your test results are abnormal.
[2025-05-24 14:08] VITALS: BP 140/74; PULSE 62; RESP 12; TEMP 36.3; O2SAT 94; BMI 39.2
[2025-05-24 15:39] VITALS: BP 133/78; PULSE 68
== END 2025-05-24 14:48 | disposition home or self-care (01) ==
LOC: HO.HMCSH 13:31
PROVIDERS: PCP Physician Assistant Medical; Visit Provider Physician Assistant Medical
DX: Z00.00 Encounter for general adult medical examination without abnormal findings (principal); M25.511 Pain in right shoulder; M75.100 Unspecified rotator cuff tear or rupture of unspecified shoulder, not specified as traumatic; G47.30 Sleep apnea, unspecified; R73.03 Prediabetes; I10 Essential (primary) hypertension; Z12.2 Encounter for screening for malignant neoplasm of respiratory organs; M79.89 Other specified soft tissue disorders; Z23 Encounter for immunization; R73.01 Impaired fasting glucose

== ENCOUNTER → 2025-05-24 13:31 | Outpatient (BNVA) | payer OTHER, SELFPAY | PROVIDERS: PCP Physician Assistant Medical; Visit Provider Physician Assistant Medical | DX: Z13.31 Encounter for screening for depression (principal); R73.03 Prediabetes | CPT/HCPCS: 83036; 90471; 96127 ==

== ENCOUNTER 2025-05-29 09:47 | Outpatient (AMB) | payer OTHER, SELFPAY ==
--- NOTE | 2025-05-29 10:04 | MHC.OFFVIS ---
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 Obstructive Sleep Apnea: - The patient has a history of sleep apnea treated with a CPAP machine from [facility]. - His current machine is old and displays a daily message indicating it needs to be addressed, as the CPAP motor is reaching the end of its life span. - The CPAP is not transmitting data. - He is scheduled for a take-home sleep study on July 12. - He does not know his current CPAP settings but recalls it starting at a pressure of 4.5. Chronic Daily Headache: - The patient endorses a chronic, low-level, non-debilitating daily headache that he describes as his head not feeling crystal clear. - He reports this has been occurring for a long time, possibly since his 20s. - The headache affects his whole head. - Associated symptoms include occasional photophobia and phonophobia, particularly with certain sounds. - The patient also reports having tinnitus, which he notes when discussing his sensitivity to sound. - He denies associated nausea or osmophobia. - he does not take anything specifically for the headache at this time. However, The patient reports taking two Aleve daily for arthritis. - His last disabling headache occurred during a COVID-19 infection. - He reports sleeping for approximately eight hours each night. - Pending Tests: A take-home sleep study is scheduled for July 12. [facility] Medical History (Updated 05/29/25 @ 13:03 by JULISSA Golden) Screening for lung cancer Pre-diabetes Annual physical exam Leg swelling Heart murmur History of smoking 30 or more pack years Rotator cuff tear HTN (hypertension) Sleep apnea Anxiety and depression Alcohol use disorder Arthritis Diverticulitis Surgical History History of colonoscopy (~01/16/25) Family History Paternal Grandfather Substance abuse Cancer Father Asthma Clotting disorder Mother Hypertension High cholesterol Clotting disorder Maternal Grandmother Cardiovascular disease Maternal Grandfather Clotting disorder Social History Household Members: Spouse Both parents involved: No Caregiver staying overnight: No Housing: House Are you a primary care administrative tech to a significant other at home: No Do you presently have visiting nurse or other home services: No 75 years or older and lives alone: No Alcohol intake: current Alcohol intake frequency: a few times a week Patient Tobacco Use Status: Former Tobacco user service: Yes Current occupational status: retired Cognitive needs: No Hearing needs: No Vision needs: Yes (wear glasses) Review of Systems Narrative As per HPI Physical Exam Exam Exam: Alert and oriented x3 Pleasant effect No active distress No evidence of photophobia Able to speak in full sentences without dyspnea Normal gait Vital Signs: Last Vital Signs Pulse 63 05/29/25 10:06 BP 150/80 H 05/29/25 10:06 Pulse Ox 95 05/29/25 10:06 Oxygen Delivery Method Room Air 05/29/25 10:06 BMI result Body Mass Index 40.3 Assessment & Plan Assessment & Plan (1) Sleep apnea: Code(s): G47.30 - Sleep apnea, unspecified Category: Medical Qualifiers: Sleep apnea type: unspecified type Qualified Code(s): G47.30 - Sleep apnea, unspecified (2) Hypersomnia: Code(s): G47.10 - Hypersomnia, unspecified Category: Medical (3) Abnormal REM sleep: Comment: Early sleep onset REM Code(s): G47.8 - Other sleep disorders Category: Medical (4) Sleep disturbance: Code(s): G47.9 - Sleep disorder, unspecified Category: Medical (5) Sleep paralysis: Code(s): G47.8 - Other sleep disorders Category: Medical (6) Chronic migraine without aura without status migrainosus, not intractable: Comment: Probable- mild, non disabling Code(s): G43.709 - Chronic migraine without aura, not intractable, without status migrainosus Category: Medical Plan Discussion Notes I discussed the plan to address the patient's need for a new CPAP machine, as his current device is old and no longer transmitting data. We will proceed with the scheduled take-home sleep study, and I will order a new CPAP based on the results. I explained that the new machine will likely be set to an auto-adjusting pressure range, such as 5-20 cm H2O, as his prior settings are unknown and may have changed. I noted that if the study shows severe results, an in-lab titration study may be necessary. I advised on continued proper CPAP hygiene, including cleaning supplies with mild soap and distilled water, and warned that using external CPAP cleaning machines can void the device's warranty. We also addressed his chronic daily headaches, which he describes as a feeling of not having a clear head. We agreed to first assess if the new, properly functioning CPAP machine helps alleviate the headaches before considering further interventions. I recommended a follow-up visit in approximately October to review his progress with the new therapy. Plan Patient was informed and verbally consented to the use of an ambient scribe for clinic note documentation during this visit. 1. Obstructive Sleep Apnea - The patient will proceed with his scheduled take-home sleep study on July 12. - A new CPAP machine will be ordered via [employer] following the sleep study results. - The new device will be set to an auto-adjusting pressure range, likely 5 to 20 cm H2O, pending study results. - An in-lab titration study will be considered if the home study reveals severe sleep apnea or significant oxygen desaturation. - Counseled the patient on proper CPAP hygiene, including regular cleaning of supplies with distilled water and mild soap, and avoiding external CPAP lastex thread winder that could void the warranty. - Plan to follow up in approximately 3 months after HST, around October, to assess compliance and efficacy of the new treatment. 2. Chronic Daily Headache - The plan is to monitor headaches and reassess after initiation of therapy with the new CPAP machine to determine if symptoms improve. - The patient is not seeking aggressive treatment at this time given the non-debilitating nature of the headaches. - If headaches worsen or fail to improve, further treatment options can be explored at the follow-up visit. Coding Level of Care Code Est Pt Level 3 (28097) Diagnoses Sleep apnea, unspecified type G47.30 Sleep apnea type: unspecified type Hypersomnia G47.10 Abnormal REM sleep G47.8 Sleep disturbance G47.9 Sleep paralysis G47.8 Chronic migraine without aura without status migrainosus, not intractable G43.707
[2025-05-29 10:06] VITALS: BP 150/80; PULSE 63; O2SAT 95; BMI 40.3
== END 2025-05-29 11:04 | disposition home or self-care (01) ==
LOC: HO.HSMS 09:48
PROVIDERS: PCP Nurse Practitioner Family; Visit Provider Nurse Practitioner Family
DX: G47.30 Sleep apnea, unspecified (principal); G47.10 Hypersomnia, unspecified; G47.8 Other sleep disorders; G47.9 Sleep disorder, unspecified; G43.709 Chronic migraine without aura, not intractable, without status migrainosus
CPT/HCPCS: 99213